=== PATIENT | female | born 1980 | race Caucasian/White ===

== ENCOUNTER → 2019-04-11 13:53 | Outpatient (BNVA) | payer MEDICAID, SELFPAY | PROVIDERS: Family Provider Nurse Practitioner Family; PCP Nurse Practitioner Family; Visit Provider Nurse Practitioner Family | DX: I10 Essential (primary) hypertension (principal); G62.9 Polyneuropathy, unspecified; F10.21 Alcohol dependence, in remission | CPT/HCPCS: 80053; 80061; 84443; 85025 ==

== ENCOUNTER 2019-05-13 12:49 | Outpatient (CLI) | payer SELFPAY ==
--- NOTE | 2019-05-13 13:03 | XR_ITS ---
WS: [id number] XR knee LT 3V* [id number] REASON FOR EXAM: see dx FINDINGS: Marked deformity of the patella from numerous spurring. Degenerate changes of the articular surfaces of the knee with large spurring off the femurs and tibia l condyles. 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 XR/XR knee LT 3V* [id number] IMPRESSION: Advanced osteoarthritic changes of the left knee.
--- NOTE | 2019-05-13 13:03 | XR_ITS ---
WS: [id number] XR knee RT 3V* [id number] REASON FOR EXAM: see dx FINDINGS: Degenerate changes across the menisci medial and lateral There is multiple fragments off the patella. The patella femoral articulation show ankylosing findings. XR/XR knee RT 3V* [id number] IMPRESSION: Ankylosing degenerate changes patellofemoral articulation Multiple fragmentations of the patella. Degenerate changes across the medial lateral articulating menisci. With ayo duggan
--- NOTE | 2019-05-13 13:03 | XR_ITS ---
WS: [id number] XR lumbar spine 2-3V* [id number] REASON FOR EXAM: see dx FINDINGS: Anterior listhesis grade L4-L5 Moderate osteoarthritic changes L4-L5-S1. with heavy eburnation. 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 The lumbosacral angle was essentially normal. XR/XR lumbar spine 2-3V* [id number] IMPRESSION: Grade 2 spondylolisthesis L4-L5 with loss of the disc space. 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
== END 2019-05-13 12:50 | disposition home or self-care (01) ==
LOC: RADWPI 12:54
PROVIDERS: Family Provider Nurse Practitioner Family; PCP Nurse Practitioner Family; Visit Provider Nurse Practitioner Family
DX: M25.561 Pain in right knee (principal); M25.562 Pain in left knee; G89.29 Other chronic pain; M54.41 Lumbago with sciatica, right side; M54.42 Lumbago with sciatica, left side; Z87.828 Personal history of other (healed) physical injury and trauma; M47.897 Other spondylosis, lumbosacral region; M43.16 Spondylolisthesis, lumbar region; M17.0 Bilateral primary osteoarthritis of knee
CPT/HCPCS: 72100; 73562

== ENCOUNTER 2020-10-18 08:23 | Inpatient (IN) | payer MEDICAID, SELFPAY ==
[2020-10-18] VITALS (10 sets, daily range): BP systolic 125–181; BP diastolic 91–112; PULSE 56–62; RESP 15–20; TEMP 36.6–37; O2SAT 96–99; BMI 38.2
--- NOTE | 2020-10-18 08:39 | ED_ITS ---
Documented by User: KENNEDY Quinonez 10/18/20 15:45 HPI - Abdominal Pain General: Chief Complaint: Abdominal Pain Stated Complaint: ABD PAIN; CHEST TIGHTNESS Time Seen by Provider: 10/18/20 08:27 Source: patient and EMS Mode of arrival: EMS Limitations: no limitations History of Present Illness: HPI narrative: Patient is a 40-year-old female who presents to ED today with a complaint of chills/hot flashes and severe abdominal pain has been present over the past 2 to 3 days and progressively worsening. Patient states she is not having any vomiting or changes to bowel habits. She is urinating normally. She states highest documented fever has been 99.8. She states this feels like the pain she had when she was drinking heavy amount of alcohol but has been sober for over a year now. MD elicited complaint: abdominal pain Pertinent past history: other (previous alcohol abuse but no longer drinks) Onset (ago): day(s) Pain Consistency: constant Location: Diffuse Severity: severe Radiation: none Migration to: no migration Relieving factors: nothing Associated Symptoms: Reports no associated symptoms, chills and fever(s); Denies change in stool character, diarrhea, dysuria, hematochezia, melena, nausea and vomiting Review of Systems Const: Reports: fever(s) and chills ENMT: Denies: throat pain or odynophagia Card: Denies: chest pain Resp: Denies: dyspnea GI: Reports: abdominal pain; Denies: nausea, vomiting, diarrhea, change in stool character, hematochezia or melena : Denies: flank pain, dysuria, urinary frequency or urinary urgency Musc: Denies: neck pain or back pain Skin/Breast: Denies: rash Neuro: Denies: headache(s), numbness in extremities, weakness in extremities or sensory changes PFSH ED PFSH: Medical History (Updated 10/18/20 @ 16:27 by Sp Cruz MD) Alcohol dependence Degeneration of meniscus of right knee Derangement of right knee Essential hypertension Osteoarthritis of left knee Peripheral neuropathy Surgical History (Updated 10/18/20 @ 16:25 by Sp Cruz MD) History of hysterectomy Family History (Updated 10/18/20 @ 16:26 by Sp Cruz MD) Mother Brain cancer Father Diabetes Hypertension Social History (Reviewed 04/21/20 @ 14:00 by REX Davis Smoking and tobacco status: current every day smoker cigarettes Packs smoked per day: 1.5 Alcohol intake: former Lives independently: Yes Marital status: Single Physical Exam Const: COMMON NORMALS: patient oriented x3, no limitations and alert GENERAL APPEARANCE: cooperative and in distress (appears uncomfortable ) NUTRITIONAL APPEARANCE: obese ORIENTATION/CONSCIOUSNESS: Yes awake, Yes oriented to person, Yes oriented to place and Yes oriented to time HENMT: COMMON NORMALS: normocephalic and atraumatic HEAD & SCALP: normocephalic and atraumatic Neck/C-Spine: COMMON NORMALS: full ROM, no lymphadenopathy and no meningeal signs Resp: COMMON NORMALS: normal respiratory effort and clear to auscultation bilaterally AUSCULTATION: clear to auscultation bilaterally Cardio: COMMON NORMALS: regular rate and regular rhythm RATE: regular rate RHYTHM: regular rhythm GI: COMMON NORMALS: Normal to inspection, nondistended, normoactive bowel shantell nds present and no masses INSPECTION: Yes normal to inspection PALPATION: Yes Tenderness to palpation present (GI) (diffusely but mainly to epigastric/LUQ/LLQ) and Yes Guarding due to palpation present (GI) : COMMON NORMALS: Yes no CVA tenderness BLADDER/KIDNEY EXAM: Yes no CVA tenderness Back/Pelvis: COMMON NORMALS: no CVA tenderness Extremity: COMMON NORMALS: normal to inspection Neuro: COMMON NORMALS: patient oriented x3 SENSORIUM/ORIENTATION: Yes alert, Yes oriented to person, Yes oriented to place and Yes oriented to time MENINGEAL SIGNS: Yes no meningeal signs Skin: COMMON NORMALS: no rashes or lesions noted NARRATIVE SKIN EXAM: sweating but she is also covered in 5 blankets GENERAL SKIN EXAM: no rashes or lesions noted Course ED course: CBD is dilated to 10mm. She has normal LFTs but her lipase is 230. Pancreas looks normal on CT imaging. Because she is complaining of severe abdominal pain MRCP is necessary to evaluate for choledocholithiasis. Consultations: Consultation #1: Dr. Cruz-graciously accepts admission Vital Signs: Vital signs: Vital Signs Temperature 97.6 F 10/20/20 11:16 Pulse Rate 73 10/20/20 11:16 Respiratory Rate 18 10/20/20 11:16 Blood Pressure 139/82 10/20/20 11:16 Pulse Oximetry 95 10/20/20 11:16 MDM - Abdominal Pain MDM Narrative: Medical decision making narrative: Patient CT showing CBD dilatation. MRCP was obtained to rule out choledocholithiasis. This is indeed negative. Patient's LFTs are normal. She does have an elevated lipase at 230. Patient initially was not complaining of nausea and vomiting but did later throughout her visit. She was given antiemetics but continued to vomit. Pain has been uncontrollable despite repeat doses of pain medications and even attempted GI cocktail (which patient vomited). Patient states she does not feel comfortable going home. I think it is reasonable to admit her for N/V and intractable abdominal pain. Alcohol and UDS have been ordered. Spoke to hospitalist who is agreeable to admit. Lab Data: Labs: Lab Results 10/18/20 10/18/20 10/18/20 Range/Units 09:00 09:00 09:00 WBC 11.5 H (4.0-10.0) 10^3/ uL RBC 5.46 H (4.1-5.3) 10^6/u L Hgb 16.6 H (11.5-15.3) g/dL Hct 49.7 H (37.0-47.0) % MCV 91.0 (81-99) fl MCH 30.4 (28.0-34.0) pg MCHC 33.4 (30.0-36.0) g/dL RDW 13.4 (12.1-15.1) % Plt Count 274 (130-400) 10^3/c mm MPV 11.0 H (7.4-10.4) fL Neut % (Auto) 75.3 % Lymph % (Auto) 18.6 % [place] % (Auto) 4.4 % Eos % (Auto) 1.1 % Baso % (Auto) 0.3 % Neut # (Auto) 8.64 H (1.8-7.7) 10^3/u L Lymph # (Auto) 2.1 (0.8-4.8) 10^3/u L [place] # (Auto) 0.5 (0.2-0.9) 10^3/u L Eos # (Auto) 0.1 (0.0-0.8) 10^3/u L Baso # (Auto) 0.0 (0.0-0.1) 10^3/u L Nucleated RBC % (a uto) 0 % Nucleated RBCs # 0.0 /100WBC ESR (0-15) mm/hr Sodium 136 (136-145) mmol/L Potassium 4.0 (3.5-5.1) mmol/L Chloride 99 (98-107) mmol/L Carbon Dioxide 24 (22-29) mmol/L Anion Gap 17.0 (5-19) BUN 6 (6-20) mg/dL Creatinine 0.3 L (0.5-0.9) mg/dL GFR Calculation 244.0 H (90-130) mL/min Glucose 139 H (65-115) mg/dL Calculated Osmolal ity 282 L (285-295) mOsm/k g Calcium 9.8 (8.5-10.5) mg/dL Total Bilirubin 1.0 (0.15-1.2) mg/dL AST 18 (0-32) U/L ALT 14 (0-33) U/L Alkaline Phosphata se 104 (35-105) IU/L Troponin T Gen 5 n g/L (0-10) ng/L C-Reactive Protein (0.0-4.9) mg/L Total Protein 8.1 (6.6-8.7) g/dL Albumin 3.9 (3.5-5.2) g/dL Globulin 4.2 (1.3-4.6) g/dL Lipase 230 H (13-60) U/L Procalcitonin (0-0.5) ng/mL HCG, Qual Negative (Negative) Urine Color (Yellow) Urine Appearance (CLEAR) Urine pH (5-7) Ur Specific Gravit y (1.005-1.030) Urine Protein (Negative) Urine Glucose (UA) (Normal) Urine Ketones (Negative) Urine Blood (Negative) Urine Nitrate (Negative) Urine Bilirubin (Negative) Prot Sulfosalicyli c Acd (Negative) Urine Urobilinogen (Negative) mg/dL Ur Leukocyte Swapna ase (Negative) Urine Opiates Scre en (Negative) ng/mL Ur Barbiturates Sc reen (Negative) ng/mL Ur Phencyclidine S crn (Negative) ng/mL Ur Amphetamines Sc reen (Negative) ng/mL U Benzodiazepines Scrn (Negative) ng/mL Urine Cocaine Scre en (Negative) ng/mL U Marijuana (THC) Screen (Negative) ng/mL Ethyl Alcohol (0-10) mg/dL 10/18/20 10/18/20 10/18/20 Range/Units 09:00 09:00 09:00 WBC (4.0-10.0) 10^3/ uL RBC (4.1-5.3) 10^6/u L Hgb (11.5-15.3) g/dL Hct (37.0-47.0) % MCV (81-99) fl MCH (28.0-34.0) pg MCHC (30.0-36.0) g/dL RDW (12.1-15.1) % Plt Count (130-400) 10^3/c mm MPV (7.4-10.4) fL Neut % (Auto) % Lymph % (Auto) % [place] % (Auto) % Eos % (Auto) % Baso % (Auto) % Neut # (Auto) (1.8-7.7) 10^3/u L Lymph # (Auto) (0.8-4.8) 10^3/u L [place] # (Auto) (0.2-0.9) 10^3/u L Eos # (Auto) (0.0-0.8) 10^3/u L Baso # (Auto) (0.0-0.1) 10^3/u L Nucleated RBC % (a uto) % Nucleated RBCs # /100WBC ESR 22 H (0-15) mm/hr Sodium (136-145) mmol/L Potassium (3.5-5.1) mmol/L Chloride (98-107) mmol/L Carbon Dioxide (22-29) mmol/L Anion Gap (5-19) BUN (6-20) mg/dL Creatinine (0.5-0.9) mg/dL GFR Calculation (90-130) mL/min Glucose (65-115) mg/dL Calculated Osmolal ity (285-295) mOsm/k g Calcium (8.5-10.5) mg/dL Total Bilirubin (0.15-1.2) mg/dL AST (0-32) U/L ALT (0-33) U/L Alkaline Phosphata se (35-105) IU/L Troponin T Gen 5 n g/L (0-10) ng/L C-Reactive Protein 7.2 H (0.0-4.9) mg/L Total Protein (6.6-8.7) g/dL Albumin (3.5-5.2) g/dL Globulin (1.3-4.6) g/dL Lipase (13-60) U/L Procalcitonin 0.05 (0-0.5) ng/mL HCG, Qual (Negative) Urine Color (Yellow) Urine Appearance (CLEAR) Urine pH (5-7) Ur Specific Gravit y (1.005-1.030) Urine Protein (Negative) Urine Glucose (UA) (Normal) Urine Ketones (Negative) Urine Blood (Negative) Urine Nitrate (Negative) Urine Bilirubin (Negative) Prot Sulfosalicyli c Acd (Negative) Urine Urobilinogen (Negative) mg/dL Ur Leukocyte Swapna ase (Negative) Urine Opiates Scre en (Negative) ng/mL Ur Barbiturates Sc reen (Negative) ng/mL Ur Phencyclidine S crn (Negative) ng/mL Ur Amphetamines Sc reen (Negative) ng/mL U Benzodiazepines Scrn (Negative) ng/mL Urine Cocaine Scre en (Negative) ng/mL U Marijuana (THC) Screen (Negative) ng/mL Ethyl Alcohol < 10 (0-10) mg/dL 10/18/20 10/18/20 10/18/20 Range/Units 09:00 10:25 10:25 WBC (4.0-10.0) 10^3/ uL RBC (4.1-5.3) 10^6/u L Hgb (11.5-15.3) g/dL Hct (37.0-47.0) % MCV (81-99) fl MCH (28.0-34.0) pg MCHC (30.0-36.0) g/dL RDW (12.1-15.1) % Plt Count (130-400) 10^3/c mm MPV (7.4-10.4) fL Neut % (Auto) % Lymph % (Auto) % [place] % (Auto) % Eos % (Auto) % Baso % (Auto) % Neut # (Auto) (1.8-7.7) 10^3/u L Lymph # (Auto) (0.8-4.8) 10^3/u L [place] # (Auto) (0.2-0.9) 10^3/u L Eos # (Auto) (0.0-0.8) 10^3/u L Baso # (Auto) (0.0-0.1) 10^3/u L Nucleated RBC % (a uto) % Nucleated RBCs # /100WBC ESR (0-15) mm/hr Sodium (136-145) mmol/L Potassium (3.5-5.1) mmol/L Chloride (98-107) mmol/L Carbon Dioxide (22-29) mmol/L Anion Gap (5-19) BUN (6-20) mg/dL Creatinine (0.5-0.9) mg/dL GFR Calculation (90-130) mL/min Glucose (65-115) mg/dL Calculated Osmolal ity (285-295) mOsm/k g Calcium (8.5-10.5) mg/dL Total Bilirubin (0.15-1.2) mg/dL AST (0-32) U/L ALT (0-33) U/L Alkaline Phosphata se (35-105) IU/L Troponin T Gen 5 n g/L 6 (0-10) ng/L C-Reactive Protein (0.0-4.9) mg/L Total Protein (6.6-8.7) g/dL Albumin (3.5-5.2) g/dL Globulin (1.3-4.6) g/dL Lipase (13-60) U/L Procalcitonin (0-0.5) ng/mL HCG, Qual (Negative) Urine Color Straw (Yellow) Urine Appearance Clear (CLEAR) Urine pH 9 H (5-7) Ur Specific Gravit y 1.010 (1.005-1.030) Urine Protein Neg (Negative) Urine Glucose (UA) Norm (Normal) Urine Ketones 1+ H (Negative) Urine Blood Neg (Negative) Urine Nitrate Negative (Negative) Urine Bilirubin Neg (Negative) Prot Sulfosalicyli c Acd Negative (Negative) Urine Urobilinogen Norm (Negative) mg/dL Ur Leukocyte Swapna ase Negative (Negative) Urine Opiates Scre en Positive H (Negative) ng/mL Ur Barbiturates Sc reen Negative (Negative) ng/mL Ur Phencyclidine S crn Negative (Negative) ng/mL Ur Amphetamines Sc reen Positive H (Negative) ng/mL U Benzodiazepines Scrn Negative (Negative) ng/mL Urine Cocaine Scre en Negative (Negative) ng/mL U Marijuana (THC) Screen Positive H (Negative) ng/mL Ethyl Alcohol (0-10) mg/dL Imaging Data ^: CT Abd/Pel: Radiologist's impression: [employer] [address] [id number] Scan ReportSigned Patient: Ana Cristina Hernandez #: [id number]: 1980Acct#:[id number] ge/Sex: 40 / FADM Date: 10/18/20Loc: ERRoom/Bed:Attending Dr: Ordering Provider/Ordering MD: Casandra Melendez Date of Service: 10/18/20 Procedure(s): CT abdomen pelvis w con* [id number] Accession Number(s): [id number] Report Number: [id number] PROCEDURE INFORMATION: Exam: CT Abdomen And Pelvis With Contrast Exam date and time: 10/18/2020 8:39 AM Age: 40 years old Clinical indication: Abdominal pain; Additional info: Diffuse abdominal pain TECHNIQUE: Imaging protocol: Computed tomography of the abdomen and pelvis with contrast. Radiation optimization: All CT scans at this facility use at least one of these dose optimization techniques: automated exposure control; mA and/or kV adjustment per patient size (includes targeted exams where dose is matched to clinical indication); or iterative reconstruction. Contrast material: OMNI 300; Contrast volume: 95 ml; Contrast route: INTRAVENOUS (IV); COMPARISON: CT abdomen pelvis w con* [id number] 09/29/2017 1:43 PM RADIATION DOSE METRICS: Total DLP (mGy-cm): 1733.63 FINDINGS: Mediastinal space: A small hiatal hernia is present. Liver: Normal. No mass. Gallbladder and bile ducts: Dilated CBD measuring up to 10 mm in diameter the gallbladder is mildly distended. No associated inflammatory changes seen. Pancreas: Normal. No ductal dilation. Spleen: Normal. No splenomegaly. Adrenal glands: Normal. No mass. Kidneys and ureters: Normal. No hydronephrosis. Stomach and bowel: Unremarkable. No obstruction. No mucosal thickening. Appendix: No evidence of appendicitis. Intraperitoneal space: Unremarkable. No free air. No significant fluid collection. Vasculature: Mild diffuse atherosclerotic disease is present. Lymph nodes: Unremarkable. No enlarged lymph nodes. Urinary bladder: Unremarkable as visualized. Reproductive: Unremarkable as visualized. Bones/joints: Degenerative changes of the spine and right hip joint noted. Soft tissues: Unremarkable. CT/CT abdomen pelvis w con* [id number] IMPRESSION: 1. No clear evidence of acute intra-abdominal or intrapelvic pathology. 2. Dilated CBD. Further evaluation for choledocholithiasis with abdomen ultrasound and/or MRI/MRCP should be considered in the adequate clinical setting. Radiation Dose CTDIVOL = (mGy): DLP = 1733.63 (mGy-cm) Dictated By:Ventura Fleming By:Ventura Fleming Date/Time:10/18/2044DD/ 2 MRCP: Radiologist's impression: [address] [id number] Resonance ReportSigned Patient: Ana Cristina Hernandez #: [id number]: 07/20Acct#:[id number]/Sex: 40 / FADM Date: 10/18/20Loc: ERRoom/Bed:Attending Dr: Ordering Provider/Ordering MD: Casandra Melendez Date of Service: 10/18/20 Procedure(s): MR MRCP 97029 Accession Number(s): [id number] Report Number: [id number] PROCEDURE INFORMATION: Exam: MR Abdomen Without Contrast, Biliary System Exam date and time: 10/18/2020 10:14 AM Age: 40 years old Clinical indication: Abdominal pain; Additional info: Cbd dilation, abdominal pain, elevate lipase TECHNIQUE: Imaging protocol: MR of the abdomen without contrast. Exam focused on the biliary system and pancreatic ducts. Routine 3D-MRCP images were acquired and processed without radiologist supervision. COMPARISON: CT abdomen pelvis w con* [id number] 10/18/2020 9:16 AM FINDINGS: Liver: No mass. Gallbladder and bile ducts: Unremarkable. No filling defects. No intrahepatic or extrahepatic biliary ductal dilatation. Common bile duct approximately 7 mm. No choledocholithiasis or stricture. Pancreas: Unremarkable. No ductal dilation. Intraperitoneal space: No fluid collection. MR/MR MRCP [id number] IMPRESSION: Unremarkable MRCP. No biliary obstruction or choledocholithiasis. Dictated By:Rex Carver MDSigned By:Rex Carver MDSigned Date/Time:10/18/20 1251DD/ 1249 Discharge Plan Discharge Patient Disposition: Admitted As Inpatient Admit Provider: Sp Cruz Clinical Impression: Elevated lipase, Intractable abdominal pain Nausea and vomiting Qualifiers: Vomiting type: unspecified Vomiting Intractability: non-intractable Qualified Code(s): R11.2 - Nausea with vomiting, unspecified Condition: Stable Coding Level of Care Code ED [employer] P[employer] Sealer for Chg Fwd Exam Comprehensive Documented by User: Ernie Dyer MD 10/20/20 11:24 HPI - Abdominal Pain General: Chief Complaint: Abdominal Pain Stated Complaint: ABD PAIN; CHEST TIGHTNESS Time Seen by Provider: 10/18/20 08:27 [facility] ED PFSH: Medical History (Updated 10/18/20 @ 16:27 by Sp Cruz MD) Alcohol dependence Degeneration of meniscus of right knee Derangement of right knee Essential hypertension Osteoarthritis of left knee Peripheral neuropathy Surgical History (Updated 10/18/20 @ 16:25 by Sp Cruz MD) History of hysterectomy Family History (Updated 10/18/20 @ 16:26 by Sp Cruz MD) Mother Brain cancer Father Diabetes Hypertension Social History Smoking and tobacco status: current every day smoker cigarettes Packs smoked per day: 1.5 Alcohol intake: former Lives independently: Yes Marital status: Single Course Vital Signs: Vital signs: Vital Signs Temperature 97.6 F 10/20/20 11:16 Pulse Rate 73 10/20/20 11:16 Respiratory Rate 18 10/20/20 11:16 Blood Pressure 139/82 10/20/20 11:16 Pulse Oximetry 95 10/20/20 11:16 MDM - Abdominal Pain MDM Narrative: Medical decision making narrative: I discussed the case with KENNEDY Quinonez. I have reviewed the documentation. Ernie Dyer MD Emergency Medicine Lab Data: Labs: Lab Results 10/18/20 10/18/20 10/18/20 Range/Units 09:00 09:00 09:00 WBC 11.5 H (4.0-10.0) 10^3/ uL RBC 5.46 H (4.1-5.3) 10^6/u L Hgb 16.6 H (11.5-15.3) g/dL Hct 49.7 H (37.0-47.0) % MCV 91.0 (81-99) fl MCH 30.4 (28.0-34.0) pg MCHC 33.4 (30.0-36.0) g/dL RDW 13.4 (12.1-15.1) % Plt Count 274 (130-400) 10^3/c mm MPV 11.0 H (7.4-10.4) fL Neut % (Auto) 75.3 % Lymph % (Auto) 18.6 % [place] % (Auto) 4.4 % Eos % (Auto) 1.1 % Baso % (Auto) 0.3 % Neut # (Auto) 8.64 H (1.8-7.7) 10^3/u L Lymph # (Auto) 2.1 (0.8-4.8) 10^3/u L [place] # (Auto) 0.5 (0.2-0.9) 10^3/u L Eos # (Auto) 0.1 (0.0-0.8) 10^3/u L Baso # (Auto) 0.0 (0.0-0.1) 10^3/u L Nucleated RBC % (a uto) 0 % Nucleated RBCs # 0.0 /100WBC ESR (0-15) mm/hr Sodium 136 (136-145) mmol/L Potassium 4.0 (3.5-5.1) mmol/L Chloride 99 (98-107) mmol/L Carbon Dioxide 24 (22-29) mmol/L Anion Gap 17.0 (5-19) BUN 6 (6-20) mg/dL Creatinine 0.3 L (0.5-0.9) mg/dL GFR Calculation 244.0 H (90-130) mL/min Glucose 139 H (65-115) mg/dL Calculated Osmolal ity 282 L (285-295) mOsm/k g Calcium 9.8 (8.5-10.5) mg/dL Total Bilirubin 1.0 (0.15-1.2) mg/dL AST 18 (0-32) U/L ALT 14 (0-33) U/L Alkaline Phosphata se 104 (35-105) IU/L Troponin T Gen 5 n g/L (0-10) ng/L C-Reactive Protein (0.0-4.9) mg/L Total Protein 8.1 (6.6-8.7) g/dL Albumin 3.9 (3.5-5.2) g/dL Globulin 4.2 (1.3-4.6) g/dL Lipase 230 H (13-60) U/L Procalcitonin (0-0.5) ng/mL HCG, Qual Negative (Negative) Urine Color (Yellow) Urine Appearance (CLEAR) Urine pH (5-7) Ur Specific Gravit y (1.005-1.030) Urine Protein (Negative) Urine Glucose (UA) (Normal) Urine Ketones (Negative) Urine Blood (Negative) Urine Nitrate (Negative) Urine Bilirubin (Negative) Prot Sulfosalicyli c Acd (Negative) Urine Urobilinogen (Negative) mg/dL Ur Leukocyte Swapna ase (Negative) Urine Opiates Scre en (Negative) ng/mL Ur Barbiturates Sc reen (Negative) ng/mL Ur Phencyclidine S crn (Negative) ng/mL Ur Amphetamines Sc reen (Negative) ng/mL U Benzodiazepines Scrn (Negative) ng/mL Urine Cocaine Scre en (Negative) ng/mL U Marijuana (THC) Screen (Negative) ng/mL Ethyl Alcohol (0-10) mg/dL 10/18/20 10/18/20 10/18/20 Range/Units 09:00 09:00 09:00 WBC (4.0-10.0) 10^3/ uL RBC (4.1-5.3) 10^6/u L Hgb (11.5-15.3) g/dL Hct (37.0-47.0) % MCV (81-99) fl MCH (28.0-34.0) pg MCHC (30.0-36.0) g/dL RDW (12.1-15.1) % Plt Count (130-400) 10^3/c mm MPV (7.4-10.4) fL Neut % (Auto) % Lymph % (Auto) % [place] % (Auto) % Eos % (Auto) % Baso % (Auto) % Neut # (Auto) (1.8-7.7) 10^3/u L Lymph # (Auto) (0.8-4.8) 10^3/u L [place] # (Auto) (0.2-0.9) 10^3/u L Eos # (Auto) (0.0-0.8) 10^3/u L Baso # (Auto) (0.0-0.1) 10^3/u L Nucleated RBC % (a uto) % Nucleated RBCs # /100WBC ESR 22 H (0-15) mm/hr Sodium (136-145) mmol/L Potassium (3.5-5.1) mmol/L Chloride (98-107) mmol/L Carbon Dioxide (22-29) mmol/L Anion Gap (5-19) BUN (6-20) mg/dL Creatinine (0.5-0.9) mg/dL GFR Calculation (90-130) mL/min Glucose (65-115) mg/dL Calculated Osmolal ity (285-295) mOsm/k g Calcium (8.5-10.5) mg/dL Total Bilirubin (0.15-1.2) mg/dL AST (0-32) U/L ALT (0-33) U/L Alkaline Phosphata se (35-105) IU/L Troponin T Gen 5 n g/L (0-10) ng/L C-Reactive Protein 7.2 H (0.0-4.9) mg/L Total Protein (6.6-8.7) g/dL Albumin (3.5-5.2) g/dL Globulin (1.3-4.6) g/dL Lipase (13-60) U/L Procalcitonin 0.05 (0-0.5) ng/mL HCG, Qual (Negative) Urine Color (Yellow) Urine Appearance (CLEAR) Urine pH (5-7) Ur Specific Gravit y (1.005-1.030) Urine Protein (Negative) Urine Glucose (UA) (Normal) Urine Ketones (Negative) Urine Blood (Negative) Urine Nitrate (Negative) Urine Bilirubin (Negative) Prot Sulfosalicyli c Acd (Negative) Urine Urobilinogen (Negative) mg/dL Ur Leukocyte Swapna ase (Negative) Urine Opiates Scre en (Negative) ng/mL Ur Barbiturates Sc reen (Negative) ng/mL Ur Phencyclidine S crn (Negative) ng/mL Ur Amphetamines Sc reen (Negative) ng/mL U Benzodiazepines Scrn (Negative) ng/mL Urine Cocaine Scre en (Negative) ng/mL U Marijuana (THC) Screen (Negative) ng/mL Ethyl Alcohol < 10 (0-10) mg/dL 10/18/20 10/18/20 10/18/20 Range/Units 09:00 10:25 10:25 WBC (4.0-10.0) 10^3/ uL RBC (4.1-5.3) 10^6/u L Hgb (11.5-15.3) g/dL Hct (37.0-47.0) % MCV (81-99) fl MCH (28.0-34.0) pg MCHC (30.0-36.0) g/dL RDW (12.1-15.1) % Plt Count (130-400) 10^3/c mm MPV (7.4-10.4) fL Neut % (Auto) % Lymph % (Auto) % [place] % (Auto) % Eos % (Auto) % Baso % (Auto) % Neut # (Auto) (1.8-7.7) 10^3/u L Lymph # (Auto) (0.8-4.8) 10^3/u L [place] # (Auto) (0.2-0.9) 10^3/u L Eos # (Auto) (0.0-0.8) 10^3/u L Baso # (Auto) (0.0-0.1) 10^3/u L Nucleated RBC % (a uto) % Nucleated RBCs # /100WBC ESR (0-15) mm/hr Sodium (136-145) mmol/L Potassium (3.5-5.1) mmol/L Chloride (98-107) mmol/L Carbon Dioxide (22-29) mmol/L Anion Gap (5-19) BUN (6-20) mg/dL Creatinine (0.5-0.9) mg/dL GFR Calculation (90-130) mL/min Glucose (65-115) mg/dL Calculated Osmolal ity (285-295) mOsm/k g Calcium (8.5-10.5) mg/dL Total Bilirubin (0.15-1.2) mg/dL AST (0-32) U/L ALT (0-33) U/L Alkaline Phosphata se (35-105) IU/L Troponin T Gen 5 n g/L 6 (0-10) ng/L C-Reactive Protein (0.0-4.9) mg/L Total Protein (6.6-8.7) g/dL Albumin (3.5-5.2) g/dL Globulin (1.3-4.6) g/dL Lipase (13-60) U/L Procalcitonin (0-0.5) ng/mL HCG, Qual (Negative) Urine Color Straw (Yellow) Urine Appearance Clear (CLEAR) Urine pH 9 H (5-7) Ur Specific Gravit y 1.010 (1.005-1.030) Urine Protein Neg (Negative) Urine Glucose (UA) Norm (Normal) Urine Ketones 1+ H (Negative) Urine Blood Neg (Negative) Urine Nitrate Negative (Negative) Urine Bilirubin Neg (Negative) Prot Sulfosalicyli c Acd Negative (Negative) Urine Urobilinogen Norm (Negative) mg/dL Ur Leukocyte Swapna ase Negative (Negative) Urine Opiates Scre en Positive H (Negative) ng/mL Ur Barbiturates Sc reen Negative (Negative) ng/mL Ur Phencyclidine S crn Negative (Negative) ng/mL Ur Amphetamines Sc reen Positive H (Negative) ng/mL U Benzodiazepines Scrn Negative (Negative) ng/mL Urine Cocaine Scre en Negative (Negative) ng/mL U Marijuana (THC) Screen Positive H (Negative) ng/mL Ethyl Alcohol (0-10) mg/dL Discharge Plan Discharge Patient Disposition: Admitted As Inpatient Admit Provider: Sp Cruz Clinical Impression: Elevated lipase, Intractable abdominal pain Nausea and vomiting Qualifiers: Vomiting type: unspecified Vomiting Intractability: non-intractable Qualified Code(s): R11.2 - Nausea with vomiting, unspecified Condition: Stable Coding Level of Care Code ED [employer] for Chg Fwd Exam Comprehensive
[2020-10-18] MEDS: sodium chloride 0.9% 1,000 ML 999 ML IV (09:18)
[2020-10-18] MEDS: iohexol 300 mg/mL 100 mL Btl IV (09:21)
[2020-10-18 09:44] LABS: Basophils % 0.3 %; Eosinophils # 0.1 10^3/uL (0.0-0.8); Eosinophils % 1.1 %; Hematocrit 49.7 % (37.0-47.0); Hemoglobin 16.6 g/dL (11.5-15.3); Lymphocytes # 2.1 10^3/uL (0.8-4.8); Lymphocytes % 18.6 %; Mean Corpuscular HGB Conc 33.4 g/dL (30.0-36.0); Mean Corpuscular Hemoglobin 30.4 pg (28.0-34.0); Monocytes # 0.5 10^3/uL (0.2-0.9); Monocytes % 4.4 %; Neutrophils # 8.64 10^3/uL (1.8-7.7); Neutrophils % 75.3 %; Nucleated Red Blood Cells % 0 %; Platelet Count 274 10^3/cmm (130-400); Red Blood Count 5.46 10^6/uL (4.1-5.3); Red Cell Distribution Width 13.4 % (12.1-15.1); White Blood Count 11.5 10^3/uL (4.0-10.0)
[2020-10-18 09:45] LABS: HCG, Serum Qual Negative (Negative)
[2020-10-18 09:54] LABS: Alanine Aminotransferase 14 U/L (0-33); Albumin Level 3.9 g/dL (3.5-5.2); Alkaline Phosphatase 104 IU/L (35-105); Aspartate Amino Transferase 18 U/L (0-32); Blood Urea Nitrogen 6 mg/dL (6-20); Calcium 9.8 mg/dL (8.5-10.5); Carbon Dioxide 24 mmol/L (22-29); Chloride 99 mmol/L (98-107); Globulin 4.2 g/dL (1.3-4.6); Glucose 139 mg/dL (65-115); Lipase 230 U/L (13-60); Osmolality Calculated 282 mOsm/kg (285-295); Sodium 136 mmol/L (136-145); Total Protein 8.1 g/dL (6.6-8.7)
--- NOTE | 2020-10-18 10:14 | MRR_ITS ---
PROCEDURE INFORMATION: Exam: MR Abdomen Without Contrast, Biliary System Exam date and time: 10/18/2020 10:14 AM Age: 40 years old Clinical indication: Abdominal pain; Additional info: Cbd dilation, abdominal pain, elevate lipase TECHNIQUE: Imaging protocol: MR of the abdomen without contrast. Exam focused on the biliary system and pancreatic ducts. Routine 3D-MRCP images were acquired and processed without radiologist supervision. COMPARISON: CT abdomen pelvis w con* [id number] 10/18/2020 9:16 AM FINDINGS: Liver: No mass. Gallbladder and bile ducts: Unremarkable. No filling defects. No intrahepatic or extrahepatic biliary ductal dilatation. Common bile duct approximately 7 mm. No choledocholithiasis or stricture. Pancreas: Unremarkable. No ductal dilation. Intraperitoneal space: No fluid collection. MR/MR MRCP [id number] IMPRESSION: Unremarkable MRCP. No biliary obstruction or choledocholithiasis.
[2020-10-18] MEDS: acetaminophen 1,000 MG/100 ML PIGGYBACK 400 MG IV (10:33)
[2020-10-18 10:46] LABS: Add Urine Microscopic? NO; Charge for UA Resulting for Rev
[2020-10-18 10:56] LABS: Urine Appearance Clear (CLEAR); Urine Color Straw (Yellow)
[2020-10-18 10:57] LABS: Bilirubin Urine Neg (Negative); Blood Urine Neg (Negative); Glucose Urine UA Norm (Normal); Ketones Urine 1+ (Negative); Leukocyte Esterase Urine Negative (Negative); Nitrate Urine Negative (Negative); Protein Urine Neg (Negative); Urobilinogen Urine Norm (Negative); pH Urine 9 (5-7)
[2020-10-18 11:43] LABS: Sulfosalicylic Acid Urine Negative (Negative)
[2020-10-18] MEDS: morphine 4 mg/mL SDV 1 mL IVP (11:43)
[2020-10-18] MEDS: ketorolac 30 mg/mL INJ IVP (12:22)
[2020-10-18] MEDS: lidocaine 2% viscous 15 ML, aluminum-mag hydrox-simethicon 30 ML, sucralfate oral liq 1 GM PO (13:27)
[2020-10-18] MEDS: ondansetron 2 mg/ML SDV 2 mL 4 MG IVP ×2 (13:36→19:06)
[2020-10-18] MEDS: fentaNYL 50 mcg/mL INJ 2mL IVP (15:19)
[2020-10-18 15:37] LABS: Amphetamines Screen Urine Positive (Negative); Barbiturates Screen Urine Negative (Negative); Benzodiazepines Screen Urine Negative (Negative); Cocaine Screen Urine Negative (Negative); Opiate Screen Urine Positive (Negative); PCP Screen Urine Negative (Negative); THC Screen Urine Positive (Negative)
[2020-10-18 15:54] LABS: Alcohol Level < 10 mg/dL (0-10)
--- NOTE | 2020-10-18 16:19 | P.HP_ITS ---
Providers/Chief Complaint Primary Care Provider: ISAURA Davis Chief Complaint: ABD PAIN; CHEST TIGHTNESS History of Present Illness Filomena Hernandez is a 40 year old female with a past medical history of diverticulitis, peripheral neuropathy, history of opioid addiction recently going to a Suboxone clinic, patient tells me that she lost her Medicare, so she lost a lot of her medications, she tells me that she has episodes of diver ticulitis and Protonix typically help her, she tells me that last night, she started to develop left lower quadrant pain, is also left-sided pain under her breast, she felt nauseous, she had episodes of vomiting, no diarrhea, her last bowel movement was yesterday, she does tell me that she has intermittent bloody stools but she thinks it is her hemorrhoids, no history of gastric ulcers, she denies being , she had a hysterectomy, no dysuria, no hematuria, no flank pain, no fevers, no known exposure to COVID-19, she does tell me that she spoke marijuana a few days ago, she thinks it might have been laced with methamphetamines, that is why her urine was positive for amphetamines, she has no good explanation of why urine was positive for opiates, denies any recent use, for her chest discomfort, under the left breast, does radiate to the left lower quadrant Review of Systems Const: Denies: fever(s) Eyes: Denies: change in vision or blurry vision ENMT: Denies: nasal congestion Resp: Denies: dyspnea, productive cough, non-productive cough or wheezing GI: Reports: abdominal pain, nausea, vomiting and hematochezia; Denies: hematemesis, diarrhea, constipation or melena : Denies: flank pain, dysuria or urinary frequency Musc: Denies: neck pain or back pain Skin/Breast: Denies: rash Neuro: Denies: headache(s), dizziness or vertigo Endo: Denies: polyuria or polydipsia Medications/Allergies Home Medications Medication Instructions Recorded Confirmed Last Taken Type gabapentin 400 mg capsule 400 mg PO .five times daily 30 04/21/20 10/18/20 10/18/20 Rx Days #150 cap metoprolol tartrate 50 mg tablet 50 mg PO BID 30 Days #60 tab 04/21/20 10/18/20 10/18/20 Rx Allergies Allergy/AdvReac Type Severity Reaction Status Date / Time No Known Allergies Allergy Verified 04/21/20 13:38 PFSH Acute PFSH: Medical History (Updated 10/18/20 @ 16:27 by Sp Cruz MD) Alcohol dependence Degeneration of meniscus of right knee Derangement of right knee Essential hypertension Osteoarthritis of left knee Peripheral neuropathy Surgical History (Updated 10/18/20 @ 16:25 by Sp Cruz MD) History of hysterectomy Family History (Updated 10/18/20 @ 16:26 by Sp Cruz MD) Mother Brain cancer Father Diabetes Hypertension Social History Smoking and tobacco status: current every day smoker cigarettes Packs smoked per day: 1.5 Alcohol intake: former Lives independently: Yes Marital status: Single Vitals/I&O/Wt Last Vital Signs Temp 97.8 F 10/18/20 08:40 Pulse 56 L 10/18/20 15:00 Resp 16 10/18/20 15:00 BP 125/97 10/18/20 15:00 Pulse Ox 99 10/18/20 15:00 10/18/20 10/18/20 10/18/20 06:59 14:59 22:59 Intake Total 1100 / 1100 Balance 1100 / 1100 Weight last 48 hrs Weight 104.326 kg Physical Exam Const: COMMON NORMALS: no acute distress and patient oriented x3 GENERAL APPEARANCE: comfortable HENMT: COMMON NORMALS: normocephalic HEAD & SCALP: normocephalic Eye: COMMON NORMALS: Equal, round and reactive pupils present and EOMs intact bilaterally GENERAL EYE: appearance normal, both eyes and all related structures PUPIL: Yes Equal, round and reactive pupils present Neck/C-Spine: COMMON NORMALS: full ROM and no lymphadenopathy THYROID: Thyroid normal Lymph: LYMPHATIC: no lymphadenopathy noted Resp: COMMON NORMALS: normal respiratory effort, No retractions, No use of accessory muscles and clear to auscultation bilaterally AUSCULTATION: clear to auscultation bilaterally Cardio: COMMON NORMALS: regular rate, regular rhythm, S1 normal heart sound present and S2 normal heart sound present RATE: regular rate RHYTHM: regular rhythm HEART SOUNDS: S1 normal heart sound present and S2 normal heart sound present GI: COMMON NORMALS: Normal to inspection, nondistended, normoactive bowel sounds present and Soft to palpation PALPATION: Yes Tenderness to palpation present (GI) Details: LLQ, RLQ, LUQ and RUQ, No Guarding due to palpation present (GI), No Rigid due to palpation and Yes No hepatosplenomegaly present Extremity: COMMON NORMALS: normal to inspection, full ROM and no pedal edema Neuro: COMMON NORMALS: patient oriented x3, CN's II-XII intact bilaterally, moves all extremities and no focal motor deficits Psych: COMMON NORMALS: mental status grossly normal, Normal thought process present and cooperative THOUGHT PROCESS: Normal thought process present Data : 10/18/20 09:00 10/18/20 09:00 A&P Assessment and plan (1) Left lower quadrant abdominal pain: - Pain is primarily in the left lower quadrant, but does have generalized tenderness -WBC 11.5 -UA unremarkable for UTI, no radiographic evidence of pyelonephritis -CT of the abdomen pelvis has no acute findings, did show dilated CBD, MRCP no acute findings -MRCP has no acute findings -No significant transaminitis, no bili elevation -Lipase 230 -Does have a history of diverticulitis in the past -Urine toxicology positive for opiates, amphetamines, marijuana Plan: -Will admit for diverticulitis -Pain control with morphine 2 mg every 4 hours, will limit pain medication given history previous drug use, positive urine toxicology screen -Zofran for nausea -Continue Cipro and Flagyl -Follow blood cultures, serial abdominal exams -Protonix for GI prophylaxis -Lovenox for DVT prophylaxis -Full code Status: Acute Additional A&P Information Does report that recently she was being seen at Suboxone clinic, however looking at her external med list, I cannot confirm that she has been on Suboxone Attestations Medical Necessity Statement*: Patient requires hospitalization, outpatient with observation, left lower quadrant abdominal pain, likely acute diverticulitis Coding Level of Care Code Acute Visual Merchandise Manager for Stacy Fry Diagnoses Left lower quadrant abdominal pain R10.32
--- NOTE | 2020-10-18 16:19 | ECG_ITS ---
[facility] Test Date: 2020-10-18 Pat Name: Filomena Hernandez Department: Room: 250 Gender: Female Pencil Inspector: : 1980 Requested By: Sp Cruz Order Number: [id number] Frances MD: Tammy Lowe M.D. Measurements Intervals [place] Rate: 49 P: 35 VT: 161 QRS: 20 QRSD: 93 T: 11 QT: 454 QTc: 414 Interpretive Statements SINUS BRADYCARDIA WITH SINUS ARRHYTHMIA LOW QRS VOLTAGE IN PRECORDIAL LEADS [QRS DEFLECTION < 1.0 mV IN CHEST LEADS] POSSIBLE ANTERIOR MYOCARDIAL INFARCTION [30 ms Q WAVE IN V3/V4, OR R < 0.2 mV IN V4], OF INDETERMINATE AGE Compared to ECG 09/27/2018 16:25:49 Low QRS voltage now present Myocardial infarct finding now present Sinus tachycardia no longer present T-wave abnormality no longer present Possible ischemia no longer present Electronically Signed On 10-19-2020 13:06:18 CDT by Tammy Lowe M.D. [id number]
[2020-10-18 17:24] LABS: C Reactive Protein 7.2 mg/L (0.0-4.9)
[2020-10-18 17:32] LABS: Procalcitonin 0.05 ng/mL (0-0.5)
[2020-10-18 18:24] LABS: Erythrocyte Sedimentation Rate 22 mm/hr (0-15)
[2020-10-18 18:51] LABS: Troponin T (5th) Once 6 ng/L (0-10)
[2020-10-18] MEDS: sodium chloride 0.9% 1,000 ML 75 ML IV (19:01)
[2020-10-18] MEDS: pantoprazole 40 mg SDV IVP (19:04)
[2020-10-18] MEDS: amlodipine 10 mg Tablet PO (19:06)
[2020-10-18] MEDS: enoxaparin 40 mg/0.4 mL Syringe SUBCUT (19:07)
[2020-10-18] MEDS: morphine 4 mg/mL SDV 1 mL 2 MG IVP (19:19)
[2020-10-18] MEDS: ciprofloxacin 400 MG/200 ML PREMIX 200 MG IV (19:20)
[2020-10-18] MEDS: metroNIDAZOLE IV 500 MG/100 ML PREMIX 100 MG IV (21:39)
[2020-10-18] MEDS: acetaminophen 325 mg Tablet 650 MG PO (21:39)
--- NOTE | 2020-10-18 22:19 | ECG_ITS ---
[facility] Test Date: 2020-10-19 Pat Name: Filomena Hernandez Department: Room: 250 Gender: Female Screwdown Operator: DESTINY : 1980 Requested By: Sp Cruz Order Number: [id number] Frances MD: Tammy Lowe M.D. Measurements Intervals [place] Rate: 63 P: 38 IN: 167 QRS: 11 QRSD: 86 T: 7 QT: 442 QTc: 453 Interpretive Statements SINUS RHYTHM LOW QRS VOLTAGE IN PRECORDIAL LEADS [QRS DEFLECTION < 1.0 mV IN CHEST LEADS] Compared to ECG 10/18/2020 18:08:23 Sinus bradycardia no longer present Sinus arrhythmia no longer present Myocardial infarct finding no longer present Electronically Signed On 10-19-2020 13:19:35 CDT by Tammy Lowe M.D. [id number]
[2020-10-19] VITALS (12 sets, daily range): BP systolic 107–155; BP diastolic 73–96; PULSE 55–78; RESP 15–20; TEMP 36.5–37.2; O2SAT 96–100
[2020-10-19] MEDS: morphine 4 mg/mL SDV 1 mL 2 MG IVP ×5 (00:04→21:18)
[2020-10-19] MEDS: metroNIDAZOLE IV 500 MG/100 ML PREMIX 100 MG IV ×3 (05:33→21:17)
[2020-10-19] MEDS: ciprofloxacin 400 MG/200 ML PREMIX 200 MG IV ×2 (06:47→18:25)
[2020-10-19 07:52] LABS: Basophils % 0.1 %; Eosinophils # 0.1 10^3/uL (0.0-0.8); Eosinophils % 0.9 %; Hematocrit 42.5 % (37.0-47.0); Lymphocytes # 2.8 10^3/uL (0.8-4.8); Lymphocytes % 34.6 %; Mean Corpuscular HGB Conc 32.9 g/dL (30.0-36.0); Mean Platelet Volume 10.4 fL (7.4-10.4); Monocytes # 0.4 10^3/uL (0.2-0.9); Monocytes % 4.9 %; Neutrophils # 4.82 10^3/uL (1.8-7.7); Neutrophils % 59.3 %; Nucleated Red Blood Cells % 0 %; Platelet Count 201 10^3/cmm (130-400); Red Blood Count 4.52 10^6/uL (4.1-5.3); Red Cell Distribution Width 13.3 % (12.1-15.1); White Blood Count 8.1 10^3/uL (4.0-10.0)
[2020-10-19 08:09] LABS: Lactic Sepsis W/Reflex 0.6 mmol/L (0.5-2.2)
[2020-10-19 08:10] LABS: Estmated Average Glucose 108; Hemoglobin A1C 5.4 % (4.0-6.0)
[2020-10-19 08:24] LABS: Alanine Aminotransferase 11 U/L (0-33); Albumin Level 3.4 g/dL (3.5-5.2); Alkaline Phosphatase 77 IU/L (35-105); Anion Gap 14.8 (5-19); Aspartate Amino Transferase 17 U/L (0-32); Blood Urea Nitrogen 6 mg/dL (6-20); Calcium 8.3 mg/dL (8.5-10.5); Carbon Dioxide 25 mmol/L (22-29); Chloride 101 mmol/L (98-107); Globulin 3.1 g/dL (1.3-4.6); Glucose 115 mg/dL (65-115); Magnesium 1.6 mg/dL (1.7-2.3); Osmolality Calculated 283 mOsm/kg (285-295); Phosphorus 3.4 mg/dL (2.5-4.5); Potassium 3.8 mmol/L (3.5-5.1); Sodium 137 mmol/L (136-145); Thyroid Stimulating Hormone 1.66 uIU/mL (0.27-4.20); Total Bilirubin 0.6 mg/dL (0.15-1.2); Total Protein 6.5 g/dL (6.6-8.7)
[2020-10-19] MEDS: ondansetron 2 mg/ML SDV 2 mL 4 MG IVP (08:25)
--- NOTE | 2020-10-19 09:40 | PC.CHAP ---
Pastoral Care Encounter/Spiritual Assessment Type of Contact [] Declined cafeteria cashier visit [] Patient/Family/Request visit [] Outpatient visit [] Follow-up visit [] Physician referral [] Code/Alert [x] Routine visit [] Staff referral [] Actively dying [] Patient sleeping [] Family support [] [] Out of room [] Palliative care [] [] Receiving care in room [] Pre-surgical visit [] Trauma [] Long length of stay [] ICU visit [] Other: Relational/Emotional Strength [x] Patient feels connected with others/family/visitors/staff [] Distress [] Loneliness/isolation [] Abandonment Spirituality of Patient [x] Person of Kylie [] Attends Synagogue of their Kylie [x] Believes in Prayer [] Reads Bible or Hindu materials [] There are Spiritual issues to be addressed Pediatrician Interventions [x] Prayer [x] Active listening [x] Non-anxious presence [x] Spiritual/emotional support [] Crisis/trauma care [] Spiritual counseling [] Bereavement support [] Provided bereavement packet [] Provided Bible/devotional materials [] Provided toy/stuffed animal, coloring book to patient or family member [] Provided Communion [] Anointing/[place] [] Salvation [x] Completed spiritual assessment [] Other: Impact on Illness or Injury [] Angry [] Fearful [] Anxious [] Often cries [] Exhaustion [] Unable to work [] Unable to attend religion [] Unable to walk/stand [] Unable to read [] Unable to drive [] Unable to eat/drink [] Unable to sleep [] Unable to be with family [] Patient intubated [] Other: Summary patient has pain Time spent with patient 10 min
[2020-10-19] MEDS: sodium chloride 0.9% 1,000 ML 75 ML IV (10:26)
[2020-10-19] MEDS: TRAMadol 50 mg Tablet PO ×2 (11:57→18:26)
[2020-10-19] MEDS: polyethylene glycol 3350 Pkt 17 gm PO (11:57)
[2020-10-19] MEDS: nicotine 14 mg Patch 1 PATCH TRANSDERMA (16:34)
--- NOTE | 2020-10-19 17:10 | P.PN_ITS ---
Subjective Subjective: Interval history: Patient was seen this morning, her abdominal pain is persisting in the left lower quadrant, no nausea, vomiting, is able to keep down clear liquids, she does tell me she is constipated Vitals/I&O/Wt Last Vital Signs Temp 98.7 F 10/19/20 16:28 Pulse 55 L 10/19/20 16:28 Resp 18 10/19/20 16:28 BP 142/88 10/19/20 16:28 Pulse Ox 98 10/19/20 16:28 10/19/20 10/19/20 10/19/20 06:59 14:59 22:59 Intake Total 300 / 1400 2120 / 2120 Output Total 550 / 550 1050 / 1050 100 / 1150 Balance -250 / 850 1070 / 1070 -100 / 970 Weight last 48 hrs Weight 104.326 kg Weight 104.326 kg Physical Exam Const: COMMON NORMALS: no acute distress and patient oriented x3 Neck/C-Spine: COMMON NORMALS: no JVD Resp: COMMON NORMALS: normal respiratory effort, No retractions, No use of accessory muscles and clear to auscultation bilaterally AUSCULTATION: clear to auscultation bilaterally Cardio: COMMON NORMALS: no JVD, regular rate, regular rhythm, S1 normal heart sound present and S2 normal heart sound present RATE: regular rate RHYTHM: regular rhythm HEART SOUNDS: S1 normal heart sound present and S2 normal heart sound present GI: COMMON NORMALS: Normal to inspection, nondistended, normoactive bowel sounds present and Soft to palpation PALPATION: Yes Soft to palpation and Yes Tenderness to palpation present (GI) Details: LLQ Extremity: COMMON NORMALS: no pedal edema Neuro: COMMON NORMALS: patient oriented x3 Psych: COMMON NORMALS: mental status grossly normal Data : 10/19/20 07:40 10/19/20 07:40 Micro: Microbiology 10/18/20 22:08 Blood Culture - Preliminary Blood SPECIMEN COLLECTED 10/18/20 22:00 Blood Culture - Preliminary Blood SPECIMEN COLLECTED A&P Assessment and plan (1) Left lower quadrant abdominal pain: - Pain is primarily in the left lower quadrant, but does have generalized tenderness -WBC 8.1 -UA unremarkable for UTI, no radiographic evidence of pyelonephritis -CT of the abdomen pelvis has no acute findings, did show dilated CBD, MRCP no acute findings -MRCP has no acute findings -No significant transaminitis, no bili elevation -Lipase 230 -Does have a history of diverticulitis in the past -Urine toxicology positive for opiates, amphetamines, marijuana Plan: -Pain control with morphine 2 mg every 4 hours, will limit pain medication given history previous drug use, positive urine toxicology screen -Zofran for nausea -Bowel regimen, Colace, MiraLAX -Continue Cipro and Flagyl -Follow blood cultures, serial abdominal exams -Protonix for GI prophylaxis -Lovenox for DVT prophylaxis -Full code Plan for today continue antibiotics, continue fluids, add bowel regimen Status: Acute Additional A&P Information Does report that recently she was being seen at Suboxone clinic, however looking at her external med list, I cannot confirm that she has been on Suboxone Attestations Medical Necessity Statement*: Patient requires hospitalization for left lower quadrant abdominal pain, concerning for acute diverticulitis Coding Level of Care Code Acute Mechanical Artist for Stacy Fry Diagnoses Left lower quadrant abdominal pain R10.32
[2020-10-19] MEDS: docusate sodium 100 mg Capsule PO (18:25)
[2020-10-19] MEDS: enoxaparin 40 mg/0.4 mL Syringe SUBCUT (18:25)
[2020-10-19] MEDS: acetaminophen 325 mg Tablet 650 MG PO (18:26)
[2020-10-19] MEDS: amlodipine 10 mg Tablet PO (18:26)
[2020-10-19] MEDS: pantoprazole 40 mg SDV IVP (19:05)
[2020-10-20] VITALS (11 sets, daily range): BP systolic 126–147; BP diastolic 81–92; PULSE 60–91; RESP 16–19; TEMP 36.4–36.8; O2SAT 91–99
[2020-10-20] MEDS: acetaminophen 325 mg Tablet 650 MG PO ×3 (00:49→15:31)
[2020-10-20] MEDS: TRAMadol 50 mg Tablet PO ×4 (00:49→23:08)
[2020-10-20] MEDS: sodium chloride 0.9% 1,000 ML 75 ML IV ×2 (02:51→17:59)
[2020-10-20] MEDS: metroNIDAZOLE IV 500 MG/100 ML PREMIX 100 MG IV ×3 (05:36→20:16)
[2020-10-20] MEDS: morphine 4 mg/mL SDV 1 mL 2 MG IVP ×3 (05:36→18:09)
[2020-10-20] MEDS: ciprofloxacin 400 MG/200 ML PREMIX 200 MG IV ×2 (06:30→18:00)
[2020-10-20 06:54] LABS: Basophils % 0.2 %; Eosinophils # 0.1 10^3/uL (0.0-0.8); Eosinophils % 1.1 %; Hematocrit 44.7 % (37.0-47.0); Hemoglobin 14.5 g/dL (11.5-15.3); Lymphocytes # 2.5 10^3/uL (0.8-4.8); Lymphocytes % 28.1 %; Mean Corpuscular HGB Conc 32.4 g/dL (30.0-36.0); Mean Corpuscular Hemoglobin 30.7 pg (28.0-34.0); Mean Corpuscular Volume 94.5 fl (81-99); Mean Platelet Volume 11.3 fL (7.4-10.4); Monocytes # 0.5 10^3/uL (0.2-0.9); Monocytes % 5.2 %; Neutrophils % 65.1 %; Nucleated Red Blood Cells % 0 %; Platelet Count 200 10^3/cmm (130-400); Red Blood Count 4.73 10^6/uL (4.1-5.3); Red Cell Distribution Width 13.2 % (12.1-15.1); White Blood Count 8.8 10^3/uL (4.0-10.0)
[2020-10-20 07:20] LABS: Alanine Aminotransferase 11 U/L (0-33); Albumin Level 3.3 g/dL (3.5-5.2); Alkaline Phosphatase 79 IU/L (35-105); Anion Gap 14.5 (5-19); Aspartate Amino Transferase 15 U/L (0-32); Blood Urea Nitrogen 5 mg/dL (6-20); Calcium 8.9 mg/dL (8.5-10.5); Carbon Dioxide 25 mmol/L (22-29); Chloride 102 mmol/L (98-107); Globulin 3.3 g/dL (1.3-4.6); Glucose 82 mg/dL (65-115); Magnesium 1.5 mg/dL (1.7-2.3); Osmolality Calculated 282 mOsm/kg (285-295); Potassium 3.5 mmol/L (3.5-5.1); Sodium 138 mmol/L (136-145); Total Bilirubin 0.7 mg/dL (0.15-1.2); Total Protein 6.6 g/dL (6.6-8.7)
[2020-10-20] MEDS: polyethylene glycol 3350 Pkt 17 gm PO (08:50)
[2020-10-20] MEDS: nicotine 14 mg Patch 1 PATCH TRANSDERMA (08:51)
[2020-10-20] MEDS: docusate sodium 100 mg Capsule PO ×2 (08:51→17:59)
--- NOTE | 2020-10-20 12:19 | P.PN_ITS ---
Subjective Subjective: Interval history: Patient was seen this morning, her abdominal pain has improved, tolerating clears, no nausea, no vomiting, no fevers but has not had a bowel movement, she wants to try a diet Vitals/I&O/Wt Last Vital Signs Temp 97.6 F 10/20/20 11:16 Pulse 73 10/20/20 11:16 Resp 18 10/20/20 11:16 BP 139/82 10/20/20 11:16 Pulse Ox 95 10/20/20 11:16 10/19/20 10/20/20 10/20/20 22:59 06:59 14:59 Intake Total 440 / 2560 1200 / 3760 560 / 560 Output Total 100 / 1150 1200 / 2350 Balance 340 / 1410 0 / 1410 560 / 560 Weight last 48 hrs Weight 104.326 kg Physical Exam Const: COMMON NORMALS: no acute distress and patient oriented x3 HENMT: COMMON NORMALS: normocephalic HEAD & SCALP: normocephalic Resp: COMMON NORMALS: normal respiratory effort, No retractions, No use of accessory muscles and clear to auscultation bilaterally AUSCULTATION: clear to auscultation bilaterally Cardio: COMMON NORMALS: regular rate, regular rhythm, S1 normal heart sound present and S2 normal heart sound present RATE: regular rate RHYTHM: regular rhythm HEART SOUNDS: S1 normal heart sound present and S2 normal heart sound present GI: COMMON NORMALS: Normal to inspection, nondistended, normoactive bowel soun ds present and Soft to palpation PALPATION: Yes Soft to palpation, Yes Tenderness to palpation present (GI) Details: LLQ, No Guarding due to palpation present (GI) and No Rigid due to palpation Extremity: COMMON NORMALS: no pedal edema Neuro: COMMON NORMALS: patient oriented x3 Psych: COMMON NORMALS: mental status grossly normal Data : 10/20/20 04:52 10/20/20 04:52 Micro: Microbiology 10/18/20 22:08 Blood Culture - Preliminary Blood NEGATIVE TO DATE 10/18/20 22:00 Blood Culture - Preliminary Blood NEGATIVE TO DATE A&P Assessment and plan (1) Left lower quadrant abdominal pain: - Pain is primarily in the left lower quadrant, but does have generalized tenderness -WBC 8.8 -UA unremarkable for UTI, no radiographic evidence of pyelonephritis -CT of the abdomen pelvis has no acute findings, did show dilated CBD, MRCP no acute findings -MRCP has no acute findings -No significant transaminitis, no bili elevation -Does have a history of diverticulitis in the past -Urine toxicology positive for opiates, amphetamines, marijuana Plan: -Transition diet to GI soft diet, aggressive bowel regiment -Pain control with morphine 2 mg every 4 hours, will limit pain medication given history previous drug use, positive urine toxicology screen -Zofran for nausea -Bowel regimen, Colace, MiraLAX, milk of magnesia -Continue Cipro and Flagyl -Follow blood cultures, serial abdominal exams -Protonix for GI prophylaxis -Lovenox for DVT prophylaxis -Full code Plan for today continue antibiotics, continue fluids, add bowel regimen, transition to GI soft diet Status: Acute Additional A&P Information Does report that recently she was being seen at Suboxone clinic, however looking at her external med list, I cannot confirm that she has been on Suboxone Attestations Medical Necessity Statement*: Patient requires hospitalization for acute dive rticulitis, left lower quadrant pain Coding Level of Care Code Acute Lawn Service Supervisor for Chg Fwd Diagnoses Left lower quadrant abdominal pain R10.32
[2020-10-20] MEDS: amlodipine 10 mg Tablet PO (17:59)
[2020-10-20] MEDS: enoxaparin 40 mg/0.4 mL Syringe SUBCUT (18:01)
[2020-10-20] MEDS: pantoprazole 40 mg SDV IVP (18:09)
[2020-10-21] VITALS: BP 131/84; PULSE 72; RESP 16; TEMP 36.7; O2SAT 92
[2020-10-21] MEDS: acetaminophen 325 mg Tablet 650 MG PO (03:20)
[2020-10-21 03:50] VITALS: BP 130/88; PULSE 91; RESP 18; TEMP 36.8; O2SAT 93
[2020-10-21] MEDS: metroNIDAZOLE IV 500 MG/100 ML PREMIX 100 MG IV (04:10)
[2020-10-21] MEDS: ciprofloxacin 400 MG/200 ML PREMIX 200 MG IV (05:36)
[2020-10-21] MEDS: TRAMadol 50 mg Tablet PO (05:41)
[2020-10-21 05:50] LABS: Basophils % 0.4 %; Eosinophils # 0.1 10^3/uL (0.0-0.8); Eosinophils % 1.4 %; Hematocrit 47.6 % (37.0-47.0); Hemoglobin 15.4 g/dL (11.5-15.3); Lymphocytes # 2.6 10^3/uL (0.8-4.8); Lymphocytes % 31.9 %; Mean Corpuscular HGB Conc 32.4 g/dL (30.0-36.0); Mean Corpuscular Hemoglobin 30.9 pg (28.0-34.0); Mean Corpuscular Volume 95.6 fl (81-99); Mean Platelet Volume 10.2 fL (7.4-10.4); Monocytes # 0.5 10^3/uL (0.2-0.9); Monocytes % 6.5 %; Neutrophils # 4.76 10^3/uL (1.8-7.7); Neutrophils % 59.3 %; Nucleated Red Blood Cells % 0 %; Platelet Count 199 10^3/cmm (130-400); Red Blood Count 4.98 10^6/uL (4.1-5.3); Red Cell Distribution Width 13.1 % (12.1-15.1)
[2020-10-21 06:00] VITALS: PULSE 72
[2020-10-21 06:02] LABS: Alanine Aminotransferase 15 U/L (0-33); Albumin Level 3.5 g/dL (3.5-5.2); Alkaline Phosphatase 76 IU/L (35-105); Aspartate Amino Transferase 25 U/L (0-32); Blood Urea Nitrogen 4 mg/dL (6-20); Calcium 8.6 mg/dL (8.5-10.5); Carbon Dioxide 27 mmol/L (22-29); Chloride 103 mmol/L (98-107); Globulin 3.3 g/dL (1.3-4.6); Glucose 92 mg/dL (65-115); Magnesium 1.7 mg/dL (1.7-2.3); Osmolality Calculated 287 mOsm/kg (285-295); Phosphorus 3.1 mg/dL (2.5-4.5); Sodium 140 mmol/L (136-145); Total Bilirubin 0.7 mg/dL (0.15-1.2); Total Protein 6.8 g/dL (6.6-8.7)
[2020-10-21 06:15] LABS: Anion Gap 13.4 (5-19); Potassium 3.4 mmol/L (3.5-5.1)
[2020-10-21 07:47] VITALS: BP 151/97; PULSE 75; RESP 18; TEMP 36.7; O2SAT 94
[2020-10-21] MEDS: polyethylene glycol 3350 Pkt 17 gm PO (08:22)
[2020-10-21] MEDS: docusate sodium 100 mg Capsule PO (08:22)
[2020-10-21] MEDS: nicotine 14 mg Patch 1 PATCH TRANSDERMA (08:22)
--- NOTE | 2020-10-21 10:33 | PM.DCS ---
Discharge Providers Date of Admission: 10/19/20 17:10 Date of Discharge: October 21, 2020 Attending Provider at Admission: Sp Cruz MD Attending Provider at Discharge: Sp Cruz MD Primary Care Provider: ISAURA Davis Diagnoses at Discharge Discharge Diagnosis (1) Left lower quadrant abdominal pain: Status: Acute Reason for Visit Reason for Visit: ABD PAIN; CHEST TIGHTNESS Hospital Course Hospital Course Filomena Hernandez is a 40 year old female with a past medical history of diverticulitis, peripheral neuropathy, history of opioid addiction recently going to a Suboxone clinic, patient tells me that she lost her Medicare, so she lost a lot of her medications, she tells me that she has episodes of diverticulitis and Protonix typically help her, she tells me that last night, she started to develop left lower quadrant pain -CT of the abdomen pelvis has no acute findings, did show dilated CBD, MRCP no acute findings -MRCP has no acute findings Patient was admitted to [facility] for acute diverticulitis, with intractable nausea, vomiting, managed with bowel rest, IV fluids, pain control, broad-spectrum antibiotic therapy, clinically monitored. Patient clinically improved, remained afebrile, abdominal pain improved, transition to GI soft diet, tolerated well, discharged home. Patient was discharged on 7 days of Cipro Flagyl, instructions to continue GI soft diet, and advance as tolerated, follow-up with primary care provider in 1 week, monitor for fevers or worsening abdominal pain if so go to emergency room. In terms of pain control, patient does not go to the Suboxone clinic anymore, I have discharged her on a short supply of hydrocodone for her abdominal pain, to be used sparingly for abdominal pain, to use as prescribed, do not mix with any other controlled substances, do not mix with alcohol, do not operate heavy machinery or drive while taking the medication. Patient's U tox was positive for methamphetamines, marijuana, opiates. Patient adamantly denies methamphetamine use or opiate use, but does report marijuana use. Patient was strongly advised to not use any IV drugs, or any other drugs. Physical Exam Const: COMMON NORMALS: no acute distress and patient oriented x3 Resp: COMMON NORMALS: normal respiratory effort, No retractions, No use of accessory muscles and clear to auscultation bilaterally AUSCULTATION: clear to auscultation bilaterally Cardio: COMMON NORMALS: regular rate, regular rhythm, S1 normal heart sound present and S2 normal heart sound present RATE: regular rate RHYTHM: regular rhythm HEART SOUNDS: S1 normal heart sound present and S2 normal heart sound present GI: COMMON NORMALS: Normal to inspection, nondistended, normoactive bowel sounds present, Soft to palpation and non-tender PALPATION: Yes Soft to palpation Extremity: COMMON NORMALS: no pedal edema Neuro: COMMON NORMALS: patient oriented x3 Psych: COMMON NORMALS: mental status grossly normal Discharge Data Data Completed and Pending: Completed Studies During Hospitalization Category Date Time Status CT abdomen pelvis w con* [id number] Urge nt Cat Scan 10/18/20 08:39 Completed MR MRCP [id number] Urg ent MRI 10/18/20 10:14 Completed Pending at discharge Category Date Time Status Blood Culture Sta t Lab 10/18/20 22:08 Results Miscellaneous Veronica t Routine Lab 10/20/20 13:42 Received OVA and Parasites , Conc and PE Rout ine Lab 10/20/20 13:43 Received Labs from last 24 hours 10/21/20 10/21/20 10/20/20 05:29 05:29 13:43 WBC 8.0 RBC 4.98 Hgb 15.4 H Hct 47.6 H MCV 95.6 MCH 30.9 MCHC 32.4 RDW 13.1 Plt Count 199 MPV 10.2 Neut % (Auto) 59.3 Lymph % (Auto) 31.9 [place] % (Auto) 6.5 Eos % (Auto) 1.4 Baso % (Auto) 0.4 Neut # (Auto) 4.76 Lymph # (Auto) 2.6 [place] # (Auto) 0.5 Eos # (Auto) 0.1 Baso # (Auto) 0.0 Nucleated RBC % (a uto) 0 Nucleated RBCs # 0.0 Sodium 140 Potassium 3.4 L Chloride 103 Carbon Dioxide 27 Anion Gap 13.4 BUN 4 L Creatinine 0.3 L GFR Calculation 244.0 H Glucose 92 Calculated Osmolal ity 287 Calcium 8.6 Phosphorus 3.1 Magnesium 1.7 Total Bilirubin 0.7 AST 25 ALT 15 Alkaline Phosphata se 76 Total Protein 6.8 Albumin 3.5 Globulin 3.3 Misc Test Referenc e Cancelled 10/20/20 13:42 WBC RBC Hgb Hct MCV MCH MCHC RDW Plt Count MPV Neut % (Auto) Lymph % (Auto) [place] % (Auto) Eos % (Auto) Baso % (Auto) Neut # (Auto) Lymph # (Auto) [place] # (Auto) Eos # (Auto) Baso # (Auto) Nucleated RBC % (a uto) Nucleated RBCs # Sodium Potassium Chloride Carbon Dioxide Anion Gap BUN Creatinine GFR Calculation Glucose Calculated Osmolal ity Calcium Phosphorus Magnesium Total Bilirubin AST ALT Alkaline Phosphata se Total Protein Albumin Globulin Misc Test Referenc e Pending Vitals: Last Vital Signs Temp 98.0 F 10/21/20 07:47 Pulse 75 10/21/20 07:47 Resp 18 10/21/20 07:47 BP 151/97 10/21/20 07:47 Pulse Ox 94 10/21/20 07:47 Discharge Plan Discharge Patient Disposition: Home Condition: Stable Prescriptions: New hydrocodone-acetaminophen 5-325 mg tablet 1 tab PO DAILY PRN (Reason: pain) 5 Days Qty: 5 RF: 0 docusate sodium 100 mg Capsule 100 mg PO BID 30 Days Qty: 60 RF: 0 ciprofloxacin HCl [Cipro] 500 mg tablet 500 mg PO Q12H 7 Days Qty: 14 RF: 0 metoprolol tartrate 25 mg tablet 12.5 mg PO BID 30 Days Qty: 30 RF: 0 metronidazole [Flagyl] 500 mg tablet 500 mg PO Q8H 7 Days Qty: 21 RF: 0 amlodipine 10 mg Tablet 10 mg PO Q24H 30 Days Qty: 30 RF: 0 polyethylene glycol 3350 17 gram Powder In Packet 17 g PO DAILY 30 Days Qty: 30 RF: 0 Continued gabapentin 400 mg capsule 400 mg PO .five times daily 30 Days Qty: 150 RF: 5 Discontinued metoprolol tartrate 50 mg tablet 50 mg PO BID 30 Days Qty: 60 RF: 5 Discharge Orders: Discharge Order (Routine); Ordered 10/21/20 Ordered By: Sp Cruz Referrals: Diane Landon FNP-C [Primary Care Provider] - Discharge Diet: GI Soft Discharge Activity: Resume usual activity Patient Instructions: Opioid Safety Activity Restrictions/Additional Instructions: -Please use hydrocodone sparingly for abdominal pain, please use as prescribed -Do not use hydrocodone while driving or operating heavy machinery -Do not mix hydrocodone with alcohol -Use antibiotics as prescribed for acute diverticulitis -Continue GI soft diet -Slowly advance diet as tolerated Discharge Attestations Time Spent in Discharge Care*: less than 30 min Quality Metrics Clinical Quality Measures During this hospital stay, did patient experience: None Coding Level of Care Code Acute Chg [facility] note Diagnoses Left lower quadrant abdominal pain R10.32
[2020-10-21] MEDS: metoprolol tartrate 25 mg Tablet 12.5 MG PO (11:08)
[2020-10-21 11:37] VITALS: BP 151/97; PULSE 69; RESP 18; TEMP 36.9; O2SAT 98
--- NOTE | 2020-10-21 12:00 | PC.RESP ---
SMOKING CESSATION INFORMATION SENT TO PATIENT.
--- NOTE | 2020-10-21 13:27 | PC.RESP ---
SMOKING CESSATION INFORMATION SENT TO PATIENT.
== END 2020-10-21 12:13 | disposition home or self-care (01) | DRG 392 ==
LOC: ER 15:45 → MEDSURG 10-19 08:17
PROVIDERS: Admitting Provider Family Medicine; Emergency Provider Physician Assistant; PCP Nurse Practitioner Family; Visit Provider Family Medicine
DX: K57.92 Diverticulitis of intestine, part unspecified, without perforation or abscess without bleeding (principal); R11.2 Nausea with vomiting, unspecified; R82.5 Elevated urine levels of drugs, medicaments and biological substances; I10 Essential (primary) hypertension; G62.9 Polyneuropathy, unspecified; F17.210 Nicotine dependence, cigarettes, uncomplicated; Z86.59 Personal history of other mental and behavioral disorders
CPT/HCPCS: 36415; 74177; 74181; 80053; 80306; 80307; 81003; 82274; 83036; 83605; 83630; 83690; 83735; 84100; 84145; 84443; 84484; 84703; 85025; 85651; 86140; 87040; 87046; 87177; 87209; 93005; 96361; 96372; 96374; 96375; 99285; C9113; G0378; J0744; J1650; J1885; J2270; J2405; J3010; J7030; Q9967; S0030

== ENCOUNTER → 2020-11-09 11:16 | Outpatient (BNVA) | payer MEDICAID, SELFPAY | PROVIDERS: PCP Nurse Practitioner Family; Referring Provider Nurse Practitioner Family; Visit Provider Orthopaedic Surgery | DX: M17.0 Bilateral primary osteoarthritis of knee (principal) | CPT/HCPCS: 73560; 73565 ==

== ENCOUNTER → 2021-01-05 11:02 | Outpatient (BNVA) | payer BC, MEDICAID, SELFPAY | PROVIDERS: PCP Nurse Practitioner Family; Visit Provider Orthopaedic Surgery | DX: Z01.812 Encounter for preprocedural laboratory examination (principal); Z20.822 Contact with and (suspected) exposure to COVID-19 | CPT/HCPCS: 87635 ==

== ENCOUNTER 2021-01-11 09:42 | Observation (INO) | payer BC, MEDICAID, SELFPAY ==
[2021-01-01 11:31] VITALS: BMI 38.2
[2021-01-01 12:16] LABS: Anion Gap 16.1 (5-19); Blood Urea Nitrogen 10 mg/dL (6-20); Calcium 9.3 mg/dL (8.5-10.5); Carbon Dioxide 27 mmol/L (22-29); Chloride 96 mmol/L (98-107); Glucose 138 mg/dL (65-115); Osmolality Calculated 283 mOsm/kg (285-295); Potassium 3.1 mmol/L (3.5-5.1); Sodium 136 mmol/L (136-145)
[2021-01-11] VITALS (26 sets, daily range): BP systolic 106–133; BP diastolic 68–89; PULSE 77–104; RESP 15–25; TEMP 36.4–36.9; O2SAT 90–98
[2021-01-11] MEDS: oxyCODONE 20 mg ER (12 HR) Tablet PO (06:42)
[2021-01-11] MEDS: gabapentin 300 mg Capsule PO (06:42)
[2021-01-11] MEDS: acetaminophen 500 mg Tablet 1000 MG PO ×3 (06:42→17:52)
[2021-01-11] MEDS: CELEcoxib 200 mg Capsule 400 MG PO (06:42)
[2021-01-11] MEDS: sodium chloride 0.9% 1,000 ML 30 ML IV (06:43)
--- NOTE | 2021-01-11 06:56 | ANES.PREANE2 ---
Pre-Anesthetic Assessment Pre-Anesthetic Assessment: Height/Weight: Height 1.65 m Weight 104.326 kg Temp Pulse Resp BP Pulse Ox 98.2 F 104 H 18 122/78 95 01/11/21 06:09 01/11/21 06:09 01/11/21 06:09 01/11/21 06:09 01/11/21 06:09 Preop Diagnosis: Osteoarthritis Right knee Proposed Procedure: Operation Date: 01/11/21 07:00 Proposed Procedures p Total Knee Arthroplasty left 76526 M17.12(Right) - Jasson Silvestre MD Was Beta Cailin taken within 24 hours: N/A Was Clonidine taken within 24 hours: N/A Last intake: Intake Last Liquid Date 01/10/21 Last Liquid Time 23:00 Last Solid Date 01/10/21 Last Solid Time 18:00 Social: Social History: Alcohol and Tobacco Exam: Pre-Anes Outpt Exam: alert, oriented x 3 and regular rate & rhythm Airway: Submandibular: WNL Cervical ROM: WNL MP: 2 Dentition: False (uppers) Pulmonary: Pulmonary: COPD CV/HEM: CV/HEM: HTN Musc/skel: Musc/skel: OA/DJD Neuropsych: Neuropsych: Neuropathy Anesthetic Plan: ASA status: 3 Anesthesia: Regional (specify below) (SAB with adductor blk) Risk of > 500 ml blood loss (7ml/kg in children): No Meds/Allergies Current Medications: Current Medications Generic Name Dose Route Start Last Admin Trade Name Freq PRN Reason Stop Dose Admin Sodium Chloride 1,000 mls @ 30 ml s/hr 01/11/21 06:00 01/11/21 06:43 Sodium Chloride 0.9% IV 01/12/21 05:59 30 mls/hr .Q24H SHYAM Administration PFSH Anesthesia PFSH: Medical History Alcohol dependence Degeneration of meniscus of right knee Essential hypertension Osteoarthritis of left knee Peripheral neuropathy Surgical History History of hysterectomy Family History Mother Brain cancer Father Diabetes Hypertension Social History Second hand smoke exposure: Yes Alcohol intake: former Caregiver/support person: Yes Lives independently: Yes Marital status: Single Current occupational status: unemployed History of recent travel: No Current gender identity: Female Special cristina needs: No Agree to transfusion: Yes Data Anesthesia CBC & Chem 7: 01/01/21 11:46 Cardiac Studies: No Data to Display
--- NOTE | 2021-01-11 07:12 | W.PM.OPSFHP ---
Same Day Surgery H&P Indication for Procedure/HPI DATE OF PROCEDURE: January 11, 2021 CHIEF COMPLAINT/INDICATIONFOR SURGICAL PROCEDURE: Osteoarthritis right knee, here for total knee PREOP DIAGNOSIS: Osteoarthritis Right knee PLANNED PROCEDRUE: Operation Date: 01/11/21 07:00 Proposed Procedures p Total Knee Arthroplasty left 97783 M17.12(Right) - Jasson Silvestre MD Progressive right knee pain. Unresponsive to medications and injections. 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 Here for right total knee arthroplasty to improve pain and function Medications/Allergies* Allergies/Adverse Reactions Allergy/AdvReac Type Severity Reaction Status Date / Time No Known Allergies Allergy Verified 12/10/20 15:27 Current Medications: Generic Name Dose Route Start Last Admin Trade Name Freq PRN Reason Stop Dose Admin Sodium Chloride 1,000 mls @ 30 mls/hr 01/11/21 06:00 01/11/21 06:43 Sodium Chloride 0.9% IV 01/12/21 05:59 30 mls/hr .Q24H SHYAM Administration Pertinent History/Comorbid Conditions* Medical History (Updated 12/10/20 @ 15:39 by AMPARO Méndez) Alcohol dependence Degeneration of meniscus of right knee Essential hypertension Osteoarthritis of left knee Peripheral neuropathy Surgical History (Updated 10/18/20 @ 16:25 by Sp Cruz MD) History of hysterectomy Family History (Updated 10/18/20 @ 16:26 by Sp Cruz MD) Brain cancer Mother Diabetes Father Hypertension Father Social History Second hand smoke exposure: Yes Alcohol intake: former Caregiver/support person: Yes Lives independently: Yes Marital status: Single Current occupational status: unemployed History of recent travel: No Current gender identity: Female Special cristina needs: No Agree to transfusion: Yes Pertinent Exam Findings alert, oriented x 3, clear to auscultation bilaterally, regular rate & rhythm and operative site marked Recommendations Surgery/Procedure today Coding Level of Care Code Acute 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
[2021-01-11] MEDS: ketorolac 30 mg/mL INJ IM (08:00)
[2021-01-11] MEDS: EPINEPHrine 1 mg/mL INJ XX (08:01)
[2021-01-11] MEDS: tranexamic acid 1,000 mg/10mL SDV 1000 MG IRRIGATION (08:02)
--- NOTE | 2021-01-11 09:25 | XRR_ITS ---
PROCEDURE INFORMATION: Exam: XR Right Knee Exam date and time: 01/11/2021 9:25 AM Age: 40 years old Clinical indication: Condition or disease; Joint replacement status; Right; Prior surgery; Surgery date: Post-operative (0-2 days); Surgery type: Total knee post op; Additional info: Right total knee arthroplasty TECHNIQUE: Imaging protocol: XR Right knee. Views: 1 or 2 views. COMPARISON: CR XR knees AP WB w BI lmt ORTH 11/09/2020 11:23 AM FINDINGS: Bones/joints: The patient has undergone recent insertion of a total knee prosthesis. Some gas is present in the soft tissues from the recent surgery. No fractures are seen. Soft tissues: See Bones/joints finding. XR/XR knee RT 1-2V 08666 IMPRESSION: Satisfactory position of the total knee prosthesis. Radiation Dose CTDIVOL = (mGy): DLP = (mGy-cm)
--- NOTE | 2021-01-11 09:29 | PM.OP ---
Operative Report Date of procedure: January 11, 2021 Pre-op Diagnosis: Osteoarthritis Right knee Post-op diagnosis: same Post-op Findings: Tricompartmental osteoarthritis right knee Procedure Done: Right total knee arthroplasty Pathology: none sent Surgeon: Jasson Silvestre Anesthesia: Nerve Block (Spinal, adductor canal block) Estimated blood loss (mL): 150 Complications: None Findings: Degenerative joint disease with exposed subchondral bone and osteophytes predominantly in the patellofemoral and medial compartment more so than laterally Condition: stable Disposition: PACU Procedure: The patient was taken to the operating room. Patient was given 1 g of tranexamic acid . The above anesthesia provided by the anesthesia service. A timeout was performed. The patient was prepped and draped in the usual fashion with the lower extremity exposed. A anterior incision was made, midline, from a point proximal to the patella to the distal tibial tubercle. The knee was entered through a medial parapatellar approach. The patella could be displaced laterally and the knee flexed. The patellar fat pad was resected to provide better visibility. Retractors were placed medially and laterally adjacent to the tibial plateau. The femoral canal was drilled in line with the longitudinal axis of the femur. Intramedullary femoral guide for used to make a distal femoral cut in 5 degrees of valgus, resecting 8 mm from the more prominent condyle. Next the extra medullary tibial guide was placed in alignment with the longitudinal axis of the tibia. The cutting guides were set to remove just over 9 mm from the high tibial plateau. The proximal tibia was then cut. The femoral measuring guide was then placed over the distal femur. Rotation was verified checking the relationship of the guide to the condyle and the trochlear groove. There was some lateral condylar hypoplasia that merited additional external rotation of the component. The femur was measured and cut for the desired femoral component. This resulted in a flush anterior cut and a bit of prominence in the medial lateral dimension. It was felt that downsizing would result in femoral notching and the slight the desired tibial baseplate was then chosen. A trial reduction with the femur tibial baseplate and polyethylene was done, assuring that the knee was stable throughout full motion. Ligament balancing involved a release of the deep medial collateral ligament and resection of medial femoral and tibial osteophyte.The tibia was prepared for the tibial baseplate. Patellar thickness was then measured. The patella was cut removing articular cartilage and prepared for appropriate size patellar button. surfaces were cleaned with a gentamicin solution. The femur tibia and patella were then press-fit into place. The posterior capsule and collateral ligaments were then injected with a solution of 100 mL of 0.2% ropivacaine, 1 mL of a 1:1000 epinephrine solution, 30 mg of Toradol, and 1 g of tranexamic acid. final polyethylene component was then snapped into place into the tibia. The extensor retinaculum was closed with a running 1 Stratafix.. The subcutaneous tissues were closed with 2-0 Vicryl and the skin was closed with a running 4-0 Stratafix. The wound was covered with a Dermabond Prinio dressing. It was covered with 4xrs and a compressive Tubigauae was applied. The patient was taken to recovery room in stable condition. [employer] total knee arthroplasty components were used includin) Size 4 triathalon cruciate retaining femoral component 2) Size 3 Tritanium tibial component 3) 32 mm /10 mm thickness Tritanium asymetric patella 4) Size 3/9 mm thickness CR tibial bearing insert
--- NOTE | 2021-01-11 09:31 | ANES.PROC ---
Anesthesia Procedures Procedure/Date: 01/11/21 Nerve Block ^: Nerve Block 1: Main Anesthesia: spinal anesthesia block Time Out Performed: Yes Consent: requested by attending/covering physician, from patient, risks and benefits reviewed and patient agrees to proceed Nerve block location: adductor canal (right) Anesthesia monitors applied: pulse oximetry, EKG, BP cuff and oxygen Nerve block position: supine Anesthetic Used: ropivicaine 0.5% Amount of anesthesia used (mL): 20 Ultrasound used to: recognize landmarks Nerve Stimulator Used?: No Interscalene/Femoral BLK: 4 stimuplex 21 g needle used for position and inplane approach and visualize local anesthetic spread Injection: neg aspiration of heme Patient Tolerated Procedure: well Complications: none
--- NOTE | 2021-01-11 09:38 | SUR.PHASEI ---
PT AWAKE ALERT ON RA SINCE ARRIVAL PT ABLE TO MOVE BILAT THIGHS SPINAL LEVAL AT T-10 PER PT STATEMENT OF LOSS OF NORMAL SENSATION TO TOUCH, VSS IV PATENT RT KNEE DRESSING D/I FIRST ICE TO SITE RT DISTAL FOOT PINK WARM WITH STRONG REGULAR PULSE NOTED AND MARKED.
--- NOTE | 2021-01-11 09:47 | SUR.PHASEI ---
PT TAKING OCC ICE CHIPS, VSS PT SLEEPS IF NOT DISTURBED , WAITING TO GIVE REPORT TO FLOOR NURSE.
--- NOTE | 2021-01-11 10:10 | SUR.PHASEI ---
PT FAMILY NOTIFIED BY PHONE PT IS DOING WELL AND WE ARE HOLKING HER IN PACU WAITING FOR A ROOM. INFORMED PT FAMILY IT MAY BE 30 MINUTES OR SO BUT WE WILL KEEP THEM UPDATED.
[2021-01-11] MEDS: amlodipine 10 mg Tablet PO (11:36)
[2021-01-11] MEDS: CELEcoxib 200 mg Capsule PO ×2 (11:36→22:19)
[2021-01-11] MEDS: sodium chloride 0.9% 1,000 ML 100 ML IV (11:38)
[2021-01-11] MEDS: oxyCODONE 5 mg IR Tab/Cap PO (13:01)
[2021-01-11] MEDS: gabapentin 300 mg Capsule 600 MG PO ×2 (13:01→17:51)
--- NOTE | 2021-01-11 14:46 | ANE.PACU2 ---
Inpatient post-anesthesia follow up: Airway intact: Yes Vital signs: Temperature 97.5 F Pulse Rate 83 Respiratory Rate 18 Blood Pressure 133/88 Pulse Oximetry 98 Oxygen Delivery Me thod Nasal Cannula Oxygen Flow Rate 2 Fraction of Inspir ed Oxygen Hydration adequate: Yes Nausea and vomiting: No Mental status: Baseline
[2021-01-11] MEDS: morphine 4 mg/mL SDV 1 mL 2 MG IVP ×3 (18:06→22:21)
[2021-01-11] MEDS: TRAMadol 50 mg Tablet PO (22:20)
[2021-01-12] VITALS (8 sets, daily range): BP systolic 117–129; BP diastolic 80–81; PULSE 77–93; RESP 16–18; TEMP 36.5–36.6; O2SAT 92–93
[2021-01-12] MEDS: oxyCODONE 5 mg IR Tab/Cap PO ×3 (00:15→08:32)
[2021-01-12] MEDS: gabapentin 300 mg Capsule 600 MG PO ×2 (00:16→08:31)
[2021-01-12] MEDS: morphine 4 mg/mL SDV 1 mL 2 MG IVP ×3 (00:17→06:24)
[2021-01-12 02:24] LABS: Hemoglobin 13.6 g/dL (11.5-15.3)
[2021-01-12] MEDS: acetaminophen 500 mg Tablet 1000 MG PO ×2 (03:11→08:31)
[2021-01-12] MEDS: ondansetron 2 mg/ML SDV 2 mL 4 MG IVP (06:26)
--- NOTE | 2021-01-12 07:48 | P.DS_ITS ---
Discharge Providers Date of Admission: 01/11/21 09:42 Date of Discharge: January 12, 2021 Attending Provider at Admission: Jasson Silvestre MD Attending Provider at Discharge: Jasson Silvetsre MD Primary Care Provider: ISAURA Davis Diagnoses at Discharge Discharge Diagnosis (1) Status post right knee replacement: Status: Acute (2) Osteoarthritis of right knee: Status: Resolved Qualifiers: Osteoarthritis type: unspecified Qualified Code(s): M17.11 - Unilateral primary osteoarthritis, right knee Reason for Visit Reason for Visit: total knee arthoplasty Hospital Course Hospital Course The patient tolerated surgery well. They remained hemodynamically stable. They was begun on aspirin and foot pumps for DVT prophylaxis. The patient was mobilized with therapy beginning the day of surgery and by the first postoperative day independent with the walker. As the pain was adequately controlled and they were fully mobile they were discharged home. Physical Exam Narrative: EXAM NARRATIVE: On the day of discharge his knee incision was clean. They had no drainage. There is minimal swelling in the thigh and knee and the calf. No distal neurovascular deficits were noted Discharge Data Data Completed and Pending: Completed Studies During Hospitalization Category Date Time Status XR knee RT 1-2V 7 3560 Routine Exams 01/11/21 09:25 Completed Labs from last 24 hours 01/12/21 02:00 Hgb 13.6 Vitals: Last Vital Signs Temp 97.8 F 01/12/21 07:27 Pulse 77 01/12/21 07:27 Resp 16 01/12/21 07:27 BP 129/81 01/12/21 07:27 Pulse Ox 92 01/12/21 07:27 Discharge Plan Discharge Patient Disposition: Home Condition: Stable Prescriptions: New oxycodone 5 mg Tablet 5 mg PO Q4H PRN (Reason: Moderate Pain) 7 Days Qty: 40 RF: 0 aspirin 325 mg Tablet,Delayed Release (Dr/Ec) 325 mg PO DAILY 30 Days Qty: 30 RF: 0 celecoxib 200 mg Capsule 200 mg PO Q12H 14 Days Qty: 28 RF: 0 acetaminophen 500 mg Tablet 1,000 mg PO Q8H 14 Days Qty: 84 RF: 0 Continued amlodipine 10 mg tablet 10 mg PO Q24H 30 Days Qty: 30 RF: 2 tramadol 50 mg tablet 50 mg PO TID PRN (Reason: pain) Qty: 90 RF: 1 triamterene-hydrochlorothiazid 37.5-25 mg tablet 1 tab PO QAM Qty: 30 RF: 1 gabapentin 600 mg tablet 600 mg PO QID Qty: 120 RF: 2 Discontinued mupirocin 2 % ointment 1 applic topical BID Qty: 15 RF: 0 Discharge Orders: Discharge Order (Routine); Ordered 01/12/21 Ordered By: Jasson Silvestre Other Ambulatory Orders: DME: Walker (Order) Location: None Selected Ordered By: Jasson Silvestre Referrals: Jasson Silvestre MD [Physician] - 01/15/21 8:15 am Discharge Diet: Advance as tolerated Discharge Activity: Limit activity as instructed Patient Instructions: Opioid Safety Activity Restrictions/Additional Instructions: Okay to shower Keep Tubigauze sleeve in place for swelling. Okay to remove for hygiene. Apply FirstIce up to 20 min/hr for pain and swelling Take Celebrex twice a day for the next 15 days for pain , discontinue other anti-inflammatories Take Tylenol 500mg (1-2 tabs) as needed 3 times a day for mild pain take oxycodone for breakthrough pain. Exercises per physical therapy. May weight-bear as tolerated on total knee arthroplasty Discharge Attestations Time Spent in Discharge Care*: other Quality Metrics Clinical Quality Measures During this hospital stay, did patient experience: None Coding Level of Care Code Acute [facility] note Diagnoses Status post right knee replacement Z96.651 Osteoarthritis of right knee M17.11 Osteoarthritis type: unspecified
[2021-01-12] MEDS: aspirin 325 mg EC Tablet PO (08:32)
[2021-01-12] MEDS: CELEcoxib 200 mg Capsule PO (08:32)
[2021-01-12] MEDS: amlodipine 10 mg Tablet PO (08:33)
== END 2021-01-12 10:00 | disposition home or self-care (01) ==
LOC: MEDSURG 09:43
PROVIDERS: Admitting Provider Orthopaedic Surgery; PCP Nurse Practitioner Family; Visit Provider Orthopaedic Surgery
PROC: (CPT 27447; principal; 2021-01-11 07:00)
DX: M17.11 Unilateral primary osteoarthritis, right knee (principal); M23.306 Other meniscus derangements, unspecified meniscus, right knee; J44.9 Chronic obstructive pulmonary disease, unspecified; I10 Essential (primary) hypertension; G62.9 Polyneuropathy, unspecified; F17.210 Nicotine dependence, cigarettes, uncomplicated
CPT/HCPCS: 27447; 36415; 64447; 73560; 76942; 80048; 85018; 97116; 97161; 97530; C1776; G0378; J0171; J0690; J1580; J1885; J2250; J2270; J2405; J2704; J2795; J7030

== ENCOUNTER 2021-01-19 06:00 | Outpatient (RCR) | payer BC, MEDICAID, SELFPAY | END 2021-01-26 23:59 | disposition home or self-care (01) | LOC: TPT 06:00 | PROVIDERS: PCP Nurse Practitioner Family; Referring Provider Orthopaedic Surgery; Visit Provider Orthopaedic Surgery | DX: Z96.651 Presence of right artificial knee joint (principal); M23.306 Other meniscus derangements, unspecified meniscus, right knee | CPT/HCPCS: 97110; 97163 ==

== ENCOUNTER → 2021-02-16 14:35 | Outpatient (BNVA) | payer BC, MEDICAID, SELFPAY | PROVIDERS: PCP Nurse Practitioner Family; Visit Provider Orthopaedic Surgery | DX: Z96.651 Presence of right artificial knee joint (principal); M17.12 Unilateral primary osteoarthritis, left knee | CPT/HCPCS: 73560; 73565 ==

== ENCOUNTER → 2021-05-05 11:32 | Outpatient (BNVA) | payer MEDICAID, SELFPAY | PROVIDERS: PCP Nurse Practitioner Family; Visit Provider Orthopaedic Surgery | DX: Z20.822 Contact with and (suspected) exposure to COVID-19 (principal); Z01.812 Encounter for preprocedural laboratory examination | CPT/HCPCS: 87635 ==

== ENCOUNTER 2021-05-10 09:17 | Observation (INO) | payer MEDICAID, SELFPAY ==
[2021-05-03 09:55] VITALS: BMI 36.4
[2021-05-03 10:32] LABS: Basophils # 0.1 10^3/uL (0.0-0.1); Basophils % 0.7 %; Eosinophils # 0.3 10^3/uL (0.0-0.8); Eosinophils % 3.7 %; Hematocrit 45.2 % (37.0-47.0); Hemoglobin 15.3 g/dL (11.5-15.3); Lymphocytes # 2.5 10^3/uL (0.8-4.8); Lymphocytes % 28.9 %; Mean Corpuscular HGB Conc 33.8 g/dL (30.0-36.0); Mean Corpuscular Hemoglobin 30.1 pg (28.0-34.0); Monocytes # 0.5 10^3/uL (0.2-0.9); Monocytes % 6.3 %; Neutrophils # 5.11 10^3/uL (1.8-7.7); Neutrophils % 60.2 %; Nucleated Red Blood Cells % 0 %; Platelet Count 269 10^3/cmm (130-400); Red Blood Count 5.08 10^6/uL (4.1-5.3); Red Cell Distribution Width 13.6 % (12.1-15.1); White Blood Count 8.5 10^3/uL (4.0-10.0)
[2021-05-03 10:44] LABS: Anion Gap 12.7 (5-19); Blood Urea Nitrogen 8 mg/dL (6-20); Calcium 9.5 mg/dL (8.5-10.5); Carbon Dioxide 31 mmol/L (22-29); Chloride 94 mmol/L (98-107); Glucose 116 mg/dL (65-115); Osmolality Calculated 279 mOsm/kg (285-295); Sodium 135 mmol/L (136-145)
--- NOTE | 2021-05-03 10:46 | ANES.PREANE2 ---
Pre-Anesthetic Assessment Height/Weight: Height 1.65 m Weight 99.337 kg Preop Diagnosis: Osteoarthritis Left knee Operation Date: 05/10/21 07:00 Proposed Procedures p Total Knee Arthroplasty m17.12/92164(Left) - Jasson Silvestre MD Familial anesthetic complications: None Was Beta Cailin taken within 24 hours: N/A Was Clonidine taken within 24 hours: N/A Social Alcohol (Hx of ETOH dependence ) and Tobacco No interest in permanent tobacco cessation at this time Exam alert, oriented x 3, clear to auscultation bilaterally and regular rate & rhythm Airway Submandibular: within normal limits Cervical ROM: within normal limits Mallampati: Class II Comments: Comments: False upper teeth, lower teeth very poor condition Pulmonary Chronic Obstructive Pulmonary Disease CV/HEM Hypertension MET < 4 None reported Hepatic None reported GI Gastroesophageal Reflux Disease Musc/skel Osteoarthritis/DJD Peripheral edema with pain and paresthesia in hands Neuropsych Neuropathy Anesthetic Plan ASA status: 3 Anesthesia: Anesthesia Evaluation and Regional (specify below) (Spinal with adductor canal block for post op pain control ) Risk of > 500 ml blood loss (7ml/kg in children): No Medications/Allergies Home Medications Medication Instructions Recorded Confirmed Last Taken Type amlodipine 10 mg tablet 10 mg PO Q24H 30 Days #30 tab 03/02/21 05/03/21 Unknown Rx gabapentin 600 mg tablet 600 mg PO QID #120 tab 03/02/21 05/03/21 Unknown Rx triamterene 37.5 1 tab PO QAM #30 tab 03/02/21 05/03/21 Unknown Rx mg-hydrochlorothiazide 25 mg tablet tramadol 50 mg tablet 50 mg PO TID PRN #60 tab 04/29/21 05/03/21 Unknown Rx Allergies Allergy/AdvReac Type Severity Reaction Status Date / Time No Known Allergies Allergy Verified 04/29/21 16:04 [facility] Anesthesia Medical History Alcohol dependence Degeneration of meniscus of right knee Essential hypertension Osteoarthritis of left knee Peripheral neuropathy Surgical History History of hysterectomy Family History Mother Brain cancer Father Diabetes Hypertension Social History Smoking and tobacco status: current every day smoker cigarettes Packs smoked per day: 1.5 Years cigarettes smoked: 30 Second hand smoke exposure: Yes Alcohol intake: former Caregiver/support person: Yes Lives independently: Yes Marital status: Single Current occupational status: unemployed History of recent travel: No Current gender identity: Female Special cristina needs: No Agree to transfusion: Yes Data Anesthesia : 05/03/21 10:20 05/03/21 10:20 Short CBC 05/03/21 Range/Units 10:20 WBC 8.5 (4.0-10.0) 10^3/uL Hgb 15.3 (11.5-15.3) g/dL Hct 45.2 (37.0-47.0) % MCV 89.0 (81-99) fl Plt Count 269 (130-400) 10^3/cmm Neut % (Auto) 60.2 % Neut # (Auto) 5.11 (1.8-7.7) 10^3/uL BMP 05/03/21 10:20 BUN 8 Calcium 9.5 Cardiac Studies: No Data to Display
[2021-05-03 10:51] LABS: Potassium 2.7 mmol/L (3.5-5.1)
--- NOTE | 2021-05-03 11:20 | PM.MISC ---
Miscellaneous Note Note: Patient had critical lab result of K 2.7. Attempted to call patient. No answer, voice mail left.
--- NOTE | 2021-05-03 11:37 | PM.MISC ---
Miscellaneous Note Note: Attempted to contact patient. Phone number listed was patient's daughter who I spoke with. Patient's daughter Yarelis gave me her mother's phone number. I called this number and there was no answer and no voicemail option available.
[2021-05-10] VITALS (23 sets, daily range): BP systolic 97–140; BP diastolic 63–94; PULSE 97–132; RESP 16–24; TEMP 36.6–37.2; O2SAT 90–98
[2021-05-10] MEDS: oxyCODONE 20 mg ER (12 HR) Tablet PO (05:46)
[2021-05-10] MEDS: CELEcoxib 200 mg Capsule 400 MG PO (05:46)
[2021-05-10] MEDS: acetaminophen 500 mg Tablet 1000 MG PO ×3 (05:47→17:16)
[2021-05-10] MEDS: gabapentin 300 mg Capsule PO (05:47)
[2021-05-10] MEDS: sodium chloride 0.9% 1,000 ML 30 ML IV (06:24)
[2021-05-10 06:46] LABS: Anion Gap 17.1 (5-19); Blood Urea Nitrogen 12 mg/dL (6-20); Calcium 9.5 mg/dL (8.5-10.5); Carbon Dioxide 29 mmol/L (22-29); Chloride 91 mmol/L (98-107); Glomerular Filtration Rate 135.3 mL/min (90-130); Glucose 191 mg/dL (65-115); Osmolality Calculated 283 mOsm/kg (285-295); Potassium 3.1 mmol/L (3.5-5.1); Sodium 134 mmol/L (136-145)
--- NOTE | 2021-05-10 07:11 | P.ANESUD_ITS ---
Pre-Anesthetic Update Pre-Anesthetic Assessment: Date of Surgery/Procedure: 05/10/21 Preop Georgie gnosis: Osteoarthritis Left knee Proposed Procedure: Operation Date: 05/10/21 07:00 Proposed Procedures p Total Knee Arthroplasty m17.12/34970(Left) - Jasson Silvestre MD Changes from Pre-Anesthetic Assessment: Potassium improved Last Intake: Intake Last Liquid Date 05/09/21 Last Liquid Time 23:00 Last Solid Date 05/09/21 Last Solid Time 16:30 Labs Last 48hrs: BMP 05/10/21 06:20 Sodium 134 L Potassium 3.1 L Chloride 91 L Carbon Dioxide 29 BUN 12 Creatinine 0.5 Glucose 191 H Calcium 9.5 Vitals: Temperature 98.3 F 05/10/21 05:40 Temperature Source Temporal Artery S can 05/10/21 05:40 Pulse Rate 132 H 05/10/21 05:40 Respiratory Rate 20 H 05/10/21 05:40 Blood Pressure 130/94 05/10/21 05:40 Blood Pressure Lauren n 106 05/10/21 05:40 Pulse Oximetry 95 05/10/21 05:40 Oxygen Delivery Me thod 05/10/21 05:48 Exam: Pre-Anes Outpt Exam: alert, oriented x 3, clear to auscultation bilaterally and regular rate & rhythm Cardiac Studies: No Data to Display
--- NOTE | 2021-05-10 07:18 | P.HP_ITS ---
Same Day Surgery H&P Indication for Procedure/HPI DATE OF PROCEDURE: May 10, 2021 CHIEF COMPLAINT/INDICATIONFOR SURGICAL PROCEDURE: Osteoarthritis left knee here for left total knee arthroplasty PREOP DIAGNOSIS: Osteoarthritis Left knee PLANNED PROCEDURE: Operation Date: 05/10/21 07:00 Proposed Procedures p Total Knee Arthroplasty m17.12/95752(Left) - aJsson Silvestre MD Patient with history of right total knee arthroplasty and now ongoing left knee pain bending her ability to progress with activity. With radiographs showing severe degenerative changes. Here for elective left total knee arthroplasty Medications/Allergies* Allergies/Adverse Reactions Allergy/AdvReac Type Severity Reaction Status Date / Time adhesive tape Allergy ALGY-Bliste Verified 05/10/21 05:37 r Current Medications: Generic Name Dose Route Start Last Admin Trade Name Freq PRN Reason Stop Dose Admin Sodium Chloride 1,000 mls @ 30 mls/hr 05/10/21 05:45 05/10/21 06:24 Sodium Chloride 0.9% IV 05/11/21 05:44 30 mls/hr .Q24H SHYAM Administration Pertinent History/Comorbid Conditions* Medical History (Updated 04/29/21 @ 17:17 by Miranda Brown MD) Alcohol dependence Degeneration of meniscus of right knee Essential hypertension Osteoarthritis of left knee Peripheral neuropathy Surgical History (Updated 01/12/21 @ 07:47 by Jasson Silvestre MD) History of hysterectomy Family History (Updated 10/18/20 @ 16:26 by Sp Cruz MD) Brain cancer Mother Diabetes Father Hypertension Father Social History Smoking and tobacco status: current every day smoker cigarettes Packs smoked per day: 1.5 Years cigarettes smoked: 30 Second hand smoke exposure: Yes Alcohol intake: former Caregiver/support person: Yes Lives independently: Yes Marital status: Single Current occupational status: unemployed History of recent travel: No Current gender identity: Female Special cristina needs: No Agree to transfusion: Yes Pertinent Exam Findings alert, oriented x 3, clear to auscultation bilaterally and regular rate & rhythm Recommendations Surgery/Procedure today Coding Level of Care Code Acute [employer]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
[2021-05-10] MEDS: tranexamic acid 1,000 mg/10mL SDV 1000 MG IV (07:40)
--- NOTE | 2021-05-10 07:54 | ANES.PROC ---
Anesthesia Procedures Procedure/Date: 05/10/21 Nerve Block ^: Nerve Block 1: Main Anesthesia: spinal anesthesia block Time Out Performed: Yes Consent: requested by attending/covering physician, from patient, risks and benefits reviewed and patient agrees to proceed Nerve block location: adductor canal (L) Anesthesia monitors applied: pulse oximetry, EKG, BP cuff and oxygen Nerve block position: supine Anesthetic Used: ropivicaine 0.5% (30 ml) and with decadron (4 mg) Ultrasound used to: recognize landmarks Nerve Stimulator Used?: No Interscalene/Femoral BLK: 4 stimuplex 21 g needle used for position and inplane approach, visualize local anesthetic spread and no vascular puncture identified Injection: neg aspiration of heme Patient Tolerated Procedure: well and no complications Complications: none
[2021-05-10] MEDS: EPINEPHrine 1 mg/mL INJ XX (07:56)
[2021-05-10] MEDS: ketorolac 30 mg/mL INJ XX (07:57)
[2021-05-10] MEDS: sodium chloride 0.9% 100 mL Bag XX (07:58)
[2021-05-10] MEDS: tranexamic acid 1,000 mg/10mL SDV 1000 MG XX (07:58)
--- NOTE | 2021-05-10 09:16 | XR_ITS ---
WS: [id number] Left knee, AP and lateral, 05/10/2021 Clinical Data: Left Total knee arthroplasty Comparison: AP left knee knee, 02/16/2021. Findings: There is a total left knee arthroplasty in good position. No loosening is seen. No fractures or dislocations are seen. There is air within the left knee joint as a result of recent surgery. XR/XR knee LT 1-2V 08800 Impression: Left knee arthroplasty
--- NOTE | 2021-05-10 09:17 | PM.OP ---
Operative Report Date of procedure: May 10, 2021 Pre-op diagnosis: Preop Diagnosis Osteoarthritis Left knee Post-op diagnosis: same Post-op diagnosis: Same Post-op findings: Same Procedure done: Left total knee arthroplasty Implants: [place] total knee arthroplasty components were used includin) Size 4triathalon cruciate retaining femoral component 2) Size 3 Tritanium tibial component 3) 32 mm /10 mm thickness Tritanium asymetric patella 4) Size 3/9 mm thickness CR tibial bearing insert Pathology: none sent Surgeon: Jasson Silvestre Anesthesia: Nerve Block (Spinal, adductor canal block) Estimated blood loss (mL): 200 Findings: Patient had severe tricompartmental degenerative disease with slight varus alignment Condition: stable Disposition: PACU Procedure: The patient was taken to the operating room. Patient was given 1 g of tranexamic acid . The above anesthesia provided by the anesthesia service. A timeout was performed. The patient was prepped and draped in the usual fashion with the lower extremity exposed. A anterior incision was made, midline, from a point proximal to the patella to the distal tibial tubercle. The knee was entered through a medial parapatellar approach. The patella could be displaced laterally and the knee flexed. The patellar fat pad was resected to provide better visibility. Retractors were placed medially and laterally adjacent to the tibial plateau. The femoral canal was drilled in line with the longitudinal axis of the femur. Intramedullary femoral guide for used to make a distal femoral cut in 5 degrees of valgus, resecting 8 mm from the more prominent condyle. Next the extra medullary tibial guide was placed in alignment with the longitudinal axis of the tibia. The cutting guides were set to remove just over 9 mm from the high tibial plateau. The proximal tibia was then cut. The femoral measuring guide was then placed over the distal femur. Rotation was verified checking the relationship of the guide to the condyle and the trochlear groove. The femur was measured and cut for the desired femoral component. The desired tibial baseplate was then chosen. A trial reduction with the femur tibial baseplate and polyethylene was done, assuring that the knee was stable throughout full motion. Ligament balancing nothing more than a release of the deep medial collateral ligament and removal of medial osteophytes.The tibia was prepared for the tibial baseplate. Patellar thickness was then measured. The patella was cut removing articular cartilage and prepared for appropriate size patellar button. surfaces were cleaned with a gentamicin solution. The femur tibia and patella were then [] into place. The posterior capsule and collateral ligaments were then injected with a solution of 100 mL of 0.2% ropivacaine, 1 mL of a 1:1000 epinephrine solution, 30 mg of Toradol, and 1 g of tranexamic acid. Final polyethylene component was then snapped into place into the tibia. The extensor retinaculum was closed with a running 1 Stratafix interrupted 1 Ethibond. The subcutaneous tissues were closed with 2-0 Vicryl and the skin was closed with a running 4-0 Stratafix. The wound was covered with a Dermabond Prineo dressing. It was covered with 4xrs and a compressive Tubigauze was applied. The patient was taken to recovery room in stable condition.
[2021-05-10] MEDS: amlodipine 10 mg Tablet PO (10:37)
[2021-05-10] MEDS: CELEcoxib 200 mg Capsule PO ×2 (10:37→21:16)
[2021-05-10] MEDS: oxyCODONE 5 mg IR Tab/Cap PO ×3 (10:37→18:53)
[2021-05-10] MEDS: sodium chloride 0.9% 1,000 ML 100 ML IV ×2 (10:38→21:16)
[2021-05-10] MEDS: gabapentin 300 mg Capsule 600 MG PO ×3 (12:15→21:16)
--- NOTE | 2021-05-10 13:45 | ANE.PACU2 ---
Inpatient post-anesthesia follow up: Airway intact: Yes Vital signs: Temperature 98.6 F Pulse Rate 113 Respiratory Rate 18 Blood Pressure 100/67 Pulse Oximetry 95 Oxygen Delivery Me thod Room Air Oxygen Flow Rate 3 Fraction of Inspir ed Oxygen Hydration adequate: Yes Nausea and vomiting: No Pain level: 2 Mental status: Baseline
[2021-05-10] MEDS: nicotine 21 mg Patch 1 PATCH TRANSDERMA (15:07)
[2021-05-10] MEDS: morphine 4 mg/mL SDV 1 mL 2 MG IVP ×2 (16:24→20:13)
[2021-05-10] MEDS: TRAMadol 50 mg Tablet PO (17:16)
--- NOTE | 2021-05-10 19:08 | PC.NURSE ---
i reported high pulse 109 to nurse
[2021-05-10] MEDS: oxyCODONE 5 mg IR Tab/Cap 10 MG PO (23:04)
[2021-05-11] VITALS (7 sets, daily range): BP systolic 124–136; BP diastolic 80–88; PULSE 87–88; RESP 16–22; TEMP 36.6–36.7; O2SAT 97–98
[2021-05-11] MEDS: morphine 4 mg/mL SDV 1 mL 2 MG IVP ×2 (00:19→06:03)
[2021-05-11] MEDS: TRAMadol 50 mg Tablet PO ×2 (00:59→08:22)
[2021-05-11] MEDS: acetaminophen 500 mg Tablet 1000 MG PO ×2 (01:00→08:23)
--- NOTE | 2021-05-11 02:08 | PC.NURSE ---
Pain control has no been controlled. Patient keeps bending leg in bed and trying to put blankets/pillows under knee. Nurse educated patient to not do this and to keep leg straight. Patient has not kept ice on knee either. Patient is very anxious and told this nurse she has no pain tolerance.
[2021-05-11] MEDS: oxyCODONE 5 mg IR Tab/Cap 10 MG PO ×2 (03:25→09:43)
[2021-05-11 05:48] LABS: Hemoglobin 12.9 g/dL (11.5-15.3)
--- NOTE | 2021-05-11 06:00 | PC.NURSE ---
Individual pill in patient's bed: Pt got up to use the bedside commode and a white pill dropped on the floor. Pt stated it was either her Gabapentin of her blood pressure medication. Pill identifier showed it was Gabapentin.
[2021-05-11] MEDS: sodium chloride 0.9% 1,000 ML 100 ML IV (06:03)
--- NOTE | 2021-05-11 08:07 | PM.PN ---
Subjective Subjective: Filomena is anxious about a number of things. She states her mother is in the hospital. She states she is worried about her right hip. She continues to complain of pain in the left knee. Vitals/I&O/Wt Last Vital Signs Temp 98.0 F 05/11/21 07:26 Pulse 88 05/11/21 07:26 Resp 16 05/11/21 07:26 BP 124/80 05/11/21 07:26 Pulse Ox 98 05/11/21 07:26 05/10/21 05/11/21 05/11/21 22:59 06:59 14:59 Intake Total 1420 / 2960 1160 / 4120 Output Total 720 / 820 700 / 1520 Balance 700 / 2140 460 / 2600 Physical Exam Narrative: Slight bloody staining left knee dressing. Typical swelling. Data : 05/11/21 05:42 05/10/21 06:20 A&P Assessment and plan (1) Osteoarthritis of left knee: Status: Resolved Qualifiers: Osteoarthritis type: unspecified Qualified Code(s): M17.12 - Unilateral primary osteoarthritis, left knee (2) Status post right knee replacement: Knee appearance is not atypical to explain her pain. There seems to be a high component of anxiety. She has taken Xanax in the past. I will add Ativan. We will continue with therapy. Likely discharge this afternoon. Status: Acute Attestations Medical Necessity Statement*: Discharge home once pain controlled Coding Level of Care Code Acute Senior Sales Consultant for Stacy Fry Diagnoses Osteoarthritis of left knee M17.12 Osteoarthritis type: unspecified Status post right knee replacement Z96.651
[2021-05-11] MEDS: CELEcoxib 200 mg Capsule PO (08:22)
[2021-05-11] MEDS: gabapentin 300 mg Capsule 600 MG PO (08:22)
[2021-05-11] MEDS: aspirin 325 mg EC Tablet PO (08:23)
[2021-05-11] MEDS: amlodipine 10 mg Tablet PO (08:23)
[2021-05-11] MEDS: nicotine 21 mg Patch 1 PATCH TRANSDERMA (08:23)
[2021-05-11] MEDS: LORazepam 0.5 mg Tablet PO (08:31)
--- NOTE | 2021-05-11 09:04 | PC.CHAP ---
Pastoral Care Encounter/Spiritual Assessment Type of Contact [] Declined personal property assessor visit [] Patient/Family/Request visit [] Outpatient visit [] Follow-up visit [] Physician referral [] Code/Alert [x] Routine visit [] Staff referral [] Actively dying [] Patient sleeping [] Family support [] [] Out of room [] Palliative care [] [] Receiving care in room [] Pre-surgical visit [] Trauma [] Long length of stay [] ICU visit [] Other: Relational/Emotional Strength [x] Patient feels connected with others/family/visitors/staff [] Distress [] Loneliness/isolation [] Abandonment Spirituality of Patient [x] Person of Kylie [x] Attends Adventism of their Kylie [x] Believes in Prayer [] Reads Bible or Yazdanism materials [] There are Spiritual issues to be addressed Indian Nanny Interventions [x] Prayer [x] Active listening [x] Non-anxious presence [x] Spiritual/emotional support [] Crisis/trauma care [] Spiritual counseling [] Bereavement support [] Provided bereavement packet [] Provided Bible/devotional materials [] Provided toy/stuffed animal, coloring book to patient or family member [] Provided Communion [] Anointing/[place] [] Salvation [x] Completed spiritual assessment [] Other: Impact on Illness or Injury [] Angry [] Fearful [] Anxious [] Often cries [] Exhaustion [] Unable to work [] Unable to attend mormon [] Unable to walk/stand [] Unable to read [] Unable to drive [] Unable to eat/drink [] Unable to sleep [] Unable to be with family [] Patient intubated [] Other: Summary Pt had knee replacement and reports she is healing well. Expecting to go home today. She has one daughter but no grandchildren. Pt grew up in jain home and Pt still attends services on a regular basis. Right now she resides in [place] but travels to [facility] to attend a mandaeism there. She really likes the people in the mandaeism which is why she travels the distance. Time spent with patient 10 m
--- NOTE | 2021-05-11 09:58 | PM.DCS ---
Discharge Providers Date of Admission: 05/10/21 09:17 Date of Discharge: May 11, 2021 Attending Provider at Admission: Jasson Silvestre MD Attending Provider at Discharge: Jasson Silvestre MD Primary Care Provider: ISAURA Davis Diagnoses at Discharge Discharge Diagnosis (1) Osteoarthritis of left knee: Status: Resolved Qualifiers: Osteoarthritis type: unspecified Qualified Code(s): M17.12 - Unilateral primary osteoarthritis, left knee (2) Status post right knee replacement: Status: Acute Reason for Visit Reason for Visit: osteoarthritis of left knee Hospital Course Hospital Course The patient tolerated surgery well. They remained hemodynamically stable. They was begun on aspirin and foot pumps for DVT prophylaxis. The patient was mobilized with therapy beginning the day of surgery and by the first postoperative day independent with the walker. As the pain was adequately controlled and they were fully mobile they were discharged home. Physical Exam Narrative: On the day of discharge the knee incision was clean with minimal bloody drainage. There is minimal swelling in the thigh and knee and the calf. No distal neurovascular deficits were noted Discharge Data Studies Completed and Pending Completed Studies During Hospitalization Category Date Time Status XR knee LT 1-2V [id number] Routine Exams 05/10/21 09:16 Completed Radiology Impressions Knee X-Ray 05/10/21 09:16 Impression: Left knee arthroplasty Laboratory Results WBC 8.5 10^3/uL (4.0-10.0) 05/03/21 10:20 RBC 5.08 10^6/uL (4.1-5.3) 05/03/21 10:20 Hgb 12.9 g/dL (11.5-15.3) 05/11/21 05:42 Hct 45.2 % (37.0-47.0) 05/03/21 10:20 MCV 89.0 fl (81-99) 05/03/21 10:20 MCH 30.1 pg (28.0-34.0) 05/03/21 10:20 MCHC 33.8 g/dL (30.0-36.0) 05/03/21 10:20 RDW 13.6 % (12.1-15.1) 05/03/21 10:20 Plt Count 269 10^3/cmm (130-400) 05/03/21 10:20 MPV 11.0 fL (7.4-10.4) H 05/03/21 10:20 Neut % (Auto) 60.2 % 05/03/21 10:20 Lymph % (Auto) 28.9 % 05/03/21 10:20 [place] % (Auto) 6.3 % 05/03/21 10:20 Eos % (Auto) 3.7 % 05/03/21 10:20 Baso % (Auto) 0.7 % 05/03/21 10:20 Neut # (Auto) 5.11 10^3/uL (1.8-7.7) 05/03/21 10:20 Lymph # (Auto) 2.5 10^3/uL (0.8-4.8) 05/03/21 10:20 [place] # (Auto) 0.5 10^3/uL (0.2-0.9) 05/03/21 10:20 Eos # (Auto) 0.3 10^3/uL (0.0-0.8) 05/03/21 10:20 Baso # (Auto) 0.1 10^3/uL (0.0-0.1) 05/03/21 10:20 Nucleated RBC % (auto) 0 % 05/03/21 10:20 Nucleated RBCs # 0.0 /100WBC 05/03/21 10:20 Sodium 134 mmol/L (136-145) L 05/10/21 06:20 Potassium 3.1 mmol/L (3.5-5.1) L 05/10/21 06:20 Chloride 91 mmol/L (98-107) L 05/10/21 06:20 Carbon Dioxide 29 mmol/L (22-29) 05/10/21 06:20 Anion Gap 17.1 (5-19) 05/10/21 06:20 BUN 12 mg/dL (6-20) 05/10/21 06:20 Creatinine 0.5 mg/dL (0.5-0.9) 05/10/21 06:20 GFR Calculation 135.3 mL/min (90-130) H 05/10/21 06:20 Glucose 191 mg/dL (65-115) H 05/10/21 06:20 Calculated Osmolality 283 mOsm/kg (285-295) L 05/10/21 06:20 Calcium 9.5 mg/dL (8.5-10.5) 05/10/21 06:20 Vitals Last Vital Signs Temp 98.0 F 05/11/21 07:26 Pulse 88 05/11/21 07:26 Resp 18 05/11/21 09:43 BP 124/80 05/11/21 07:26 Pulse Ox 97 05/11/21 09:43 Discharge Plan Discharge Patient Disposition: Home Condition: Stable Prescriptions: New lorazepam 0.5 mg Tablet 0.5 mg PO TID PRN (Reason: Anxiety) Qty: 15 0RF oxycodone 5 mg Tablet 10 mg PO Q4H PRN (Reason: Severe Pain) 7 Days Qty: 40 0RF acetaminophen 500 mg Tablet 1,000 mg PO Q8H 14 Days Qty: 84 0RF aspirin 325 mg Tablet,Delayed Release (Dr/Ec) 325 mg PO DAILY 30 Days 0RF celecoxib 200 mg Capsule 200 mg PO Q12H 14 Days Qty: 28 0RF Continued triamterene-hydrochlorothiazid 37.5-25 mg tablet 1 tab PO QAM Qty: 30 5RF amlodipine 10 mg tablet 10 mg PO Q24H 30 Days Qty: 30 5RF gabapentin 600 mg tablet 600 mg PO QID Qty: 120 5RF tramadol 50 mg tablet 50 mg PO TID PRN (Reason: pain) Qty: 60 0RF Discharge Orders: Discharge Order (Routine); Ordered 05/11/21 Ordered By: Jasson Silvestre Other Ambulatory Orders: Physical Therapy Eval and Treat Outpatient (Order) Timeframe: 2 Weeks Facility: [facility] - Location: Physical Therapy Ordered By: Jasson Silvestre Referrals: Jasson Silvestre MD [Physician] - 05/14/21 8:00 am Discharge Diet: Advance as tolerated Discharge Activity: Limit activity as instructed Patient Instructions: Opioid Safety Activity Restrictions/Additional Instructions: You will receive a call from outpatient rehab for your therapy appointment. If you do not get a call within two days of discharge, please call them at [phone]. [phone]. Okay to shower Keep Tubigauze sleeve in place for swelling. Okay to remove for hygiene. Apply FirstIce up to 20 min/hr for pain and swelling Take Celebrex twice a day for the next 15 days for pain , discontinue other anti-inflammatories Take Tylenol 500mg (2 tabs) as needed 3 times a day for mild pain take oxycodone for breakthrough pain. Take Ativan as needed for anxiety May weight-bear as tolerated on total knee arthroplasty IF HAVE ANY PROBLEMS OR QUESTIONS CALL HOSPITAL SPORTS PHYSICIAN AT AND ASK TO HAVE DR. ARLYN WOLFE. Discharge Attestations Time Spent in Discharge Care*: other Quality Metrics Clinical Quality Measures [ No reported AMI, CVA or VTE this stay] Coding Level of Care Code Acute [facility] note Diagnoses Osteoarthritis of left knee M17.12 Osteoarthritis type: unspecified Status post right knee replacement Z96.651
--- NOTE | 2021-05-11 10:26 | PC.NURSE ---
Discharge education and teaching given to patient, all questions were answered at this time. MD Silvestre changed dressing this AM. IV discontinued. All belongings were accounted for. Vitals stable. Medications were sent to patients preferred pharmacy.
== END 2021-05-11 10:54 | disposition home or self-care (01) ==
LOC: MEDSURG 09:18
PROVIDERS: Anesthesiology; Admitting Provider Orthopaedic Surgery; PCP Nurse Practitioner Family; Visit Provider Orthopaedic Surgery
PROC: (CPT 27447; principal; 2021-05-10 07:00)
DX: M17.12 Unilateral primary osteoarthritis, left knee (principal); J44.9 Chronic obstructive pulmonary disease, unspecified; I10 Essential (primary) hypertension; K21.9 Gastro-esophageal reflux disease without esophagitis; F17.210 Nicotine dependence, cigarettes, uncomplicated
CPT/HCPCS: 27447; 36415; 64447; 73560; 76942; 80048; 85018; 85025; 97110; 97116; 97161; 97165; C1776; G0378; J0171; J0690; J1100; J1580; J1885; J2250; J2270; J2370; J2704; J2795; J3010; J3490; J7030

== ENCOUNTER → 2021-08-04 14:16 | Outpatient (BNVA) | payer MEDICAID, SELFPAY | PROVIDERS: PCP Nurse Practitioner Family; Visit Provider Orthopaedic Surgery | DX: Z96.652 Presence of left artificial knee joint (principal) | CPT/HCPCS: 73560; 73565 ==

== ENCOUNTER → 2022-04-26 11:09 | Outpatient (BNVA) | payer MEDICAID, SELFPAY | PROVIDERS: PCP Nurse Practitioner Family; Visit Provider Nurse Practitioner Family | DX: I10 Essential (primary) hypertension (principal); M79.89 Other specified soft tissue disorders; M85.80 Other specified disorders of bone density and structure, unspecified site; M85.60 Other cyst of bone, unspecified site | CPT/HCPCS: 80053; 80061; 84443; 85025 ==

== ENCOUNTER → 2022-04-26 11:38 | Outpatient (BNVA) | payer MEDICAID, SELFPAY | PROVIDERS: PCP Nurse Practitioner Family; Visit Provider Nurse Practitioner Family | DX: I10 Essential (primary) hypertension (principal); M79.89 Other specified soft tissue disorders | CPT/HCPCS: 73130 ==

== ENCOUNTER 2022-04-29 10:20 | Outpatient (CLI) | payer MEDICAID, SELFPAY ==
--- NOTE | 2022-04-29 10:15 | USCV_ITS ---
Filomena Hernandez Age: 41 Gender: F : 1980 Exam Date: 04/29/2022 10:48 Ordering Phys: Diane Landon FUDGER-Jude Technologist: Exam Location: [facility] Indication: rt leg swelling PROCEDURES: Venous duplex imaging was performed in only the right lower extremity. The following venous structures were evaluated: common femoral vein, profunda vein, proximal portion of the greater saphenous vein, superficial femoral vein, and the popliteal vein. In addition, the posterior tibial and peroneal trunk were evaluated. FINDINGS: Normal 2-D Doppler and augmentation and compressibility throughout the lower extremity venous structures. Additional imaging through the proximal calf veins also reveals no thrombus. Limited evaluation of the greater saphenous vein is patent with no thrombus. CONCLUSIONS No DVT right lower extremity. Dr. Tamia Morton DO (Electronically Signed) Final Date: 29 April 2022 11:32 S
== END 2022-04-29 10:21 | disposition home or self-care (01) ==
PROVIDERS: PCP Nurse Practitioner Family; Visit Provider Nurse Practitioner Family
DX: M79.89 Other specified soft tissue disorders (principal)
CPT/HCPCS: 93971

== ENCOUNTER → 2023-10-19 14:33 | Outpatient (BNVA) | payer MEDICAID, SELFPAY | PROVIDERS: PCP Nurse Practitioner Family; Visit Provider Nurse Practitioner Family | DX: I10 Essential (primary) hypertension (principal) | CPT/HCPCS: 80053; 80061; 84443; 85025 ==

== ENCOUNTER → 2024-07-31 12:04 | Outpatient (BNVA) | payer MEDICAID, SELFPAY | PROVIDERS: PCP Nurse Practitioner Family; Visit Provider Nurse Practitioner | DX: I10 Essential (primary) hypertension (principal); R73.9 Hyperglycemia, unspecified | CPT/HCPCS: 80053; 80061; 81000; 81003; 82306; 82607; 83036; 84443 ==

== ENCOUNTER → 2024-09-30 09:12 | Outpatient (BNVA) | payer MEDICAID, SELFPAY | PROVIDERS: PCP Nurse Practitioner; Visit Provider Nurse Practitioner | DX: M16.11 Unilateral primary osteoarthritis, right hip (principal) | CPT/HCPCS: 73502 ==

== ENCOUNTER 2025-01-18 17:05 | Emergency (ER) | payer MEDICAID, SELFPAY ==
[2025-01-18 17:12] VITALS: BP 108/77; PULSE 74; RESP 17; TEMP 37.2; O2SAT 94; BMI 33.3
--- NOTE | 2025-01-18 17:14 | ECG_ITS ---
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 Measurements Intervals [place] Rate: 64 P: 63 VT: 168 QRS: 41 QRSD: 97 T: 42 QT: 387 QTc: 400 Interpretive Statements SINUS RHYTHM LOW QRS VOLTAGE IN PRECORDIAL LEADS [QRS DEFLECTION < 1.0 mV IN CHEST LEADS] Compared to ECG 10/19/2020 03:19:51 No significant changes Electronically Signed On 01-19-2025 17:27:05 SALES SYSTEMS ENGINEER by Broderick Cotton M.D. [email or web address]
--- NOTE | 2025-01-18 17:14 | XRR_ITS ---
PROCEDURE INFORMATION: Exam: XR Chest Exam date and time: 01/18/2025 5:24 PM Age: 44 years old Clinical indication: Pain; Chest pressure and left-sided; Additional info: Chest pain TECHNIQUE: Imaging protocol: Radiologic exam of the chest. Views: 1 view. COMPARISON: CR XR chest 1V [id number] 09/27/2018 9:48 AM FINDINGS: Lungs: Unremarkable. No consolidation. Pleural spaces: Unremarkable. No pleural effusion. No pneumothorax. Heart/Mediastinum: Unremarkable. No cardiomegaly. Bones/joints: Mild degenerative changes of the AC joints. XR/XR chest 1V portable [id number] IMPRESSION: No acute findings.
--- OUTSIDE RECORDS SUMMARY | 2025-01-18 17:15 | XMS_ITS | Clinical Summary ---
Author Organization [facility] Address [address] Michel: Epic Prelude ADT SURESH HERNANDEZ [address] Care Team Providers Care Architect Manager Name Role Phone Newton Lindquist MD Primary Care Provider [phone] Allergies No known active allergies Medications potassium chloride (KLOR-CON) 10 mEq Extended Release tabletIndications :Chronic alcoholic gastritis with hemorrhage TAKE TWO TABLETS BY MOUTH TWICE DAILY 120 Tablet 1 8 Active folic acid (FOLVITE) 1 mg tabletIndications :Alcohol-induced chronic pancreatitis (CMS/HCC) Take 1 Tablet (1 mg) by mouth daily. 90 Tablet 3 8 Active ondansetron (ZOFRAN) 4 mg TabletIndications :Alcohol-induced chronic pancreatitis (CMS/HCC),Chronic alcoholic gastritis with hemorrhage TAKE ONE TABLET BY MOUTH EVERY 8 HOURS NEEDED FOR NAUSEA / EMESIS. 10 Tablet 5 8 Active metoprolol tartrate (LOPRESSOR) 50 mg tabletIndications :LEI (generalized anxiety disorder),HTN (hypertension), benign Take 1 Tablet (50 mg) by mouth 2 times daily. 180 Tablet 3 8 Active venlafaxine (EFFEXOR XR) 150 mg Extended Release 24 hour capsuleIndication s:LEI (generalized anxiety disorder),Mild episode of recurrent major depressive disorder Take 1 Capsule (150 mg) by mouth daily. 90 Capsule 3 8 Active pantoprazole (PROTONIX) 40 mg Tablet, Delayed Release (E.C.)Indications :Chronic alcoholic gastritis with hemorrhage,Alcoho l-induced chronic pancreatitis (CMS/HCC) Take 1 Tablet (40 mg) by mouth daily. 90 Tablet 3 8 Active gabapentin (NEURONTIN) 600 mg tabletIndications :Fibromyalgia TAKE ONE TABLET BY MOUTH THREE TIMES DAILY 45 Tablet 0 9 Active clonazePAM (KlonoPIN) 0.5 mg TabletIndications :Mild episode of recurrent major depressive disorder,LEI (generalized anxiety disorder) TAKE ONE TABLET BY MOUTH DAILY NEEDED FOR ANXIETY 30 Tablet 0 8 Active multivitamins with minerals Capsule Take 1 Cap by mouth daily. 5 Active Active Problems Problem Noted Date Diagnosed Date Severe obesity (BMI 35.0-39.9) with comorbidity 07/07/2017 Mild episode of recurrent major depressive disor eve 04/10/2017 Chronic alcoholic gastritis with hemorrhage 03/30 Fibromyalgia 04/10/2017 Tobacco use 04/10/2017 H/O ETOH abuse 04/10/2017 Fatty liver 04/10/2017 HTN (hypertension), benign 04/10/2017 LEI (generalized anxiety disorder) 04/10/2017 Alcohol-induced chronic pancreatitis 04/10/2017 Resolved Problems Problem Noted Date Diagnosed Date Resolved Date Acquired hypothyroidism 04/10/201709/27 Social History Tobacco Use Types Packs/Day Years Used Date Smoking Tobacco: Every Day Cigarettes 1 30 Smokeless Tobacco: Never Tobacco Cessation:Ready to Q uit: Not Asked; Counseling Given: Not Answered Alcohol Use Standard Drinks/Week Comments No 0 (1 standard drink = 0.6 oz pur e alcohol) Feeling Safe Answer Date Recorded Are you in a relationship wi th someone who hurts you emotionally and/or physically? 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 Gender Identity Not on file Sexual Orientation Not on file Last Filed Vital Signs Vital Sign Reading Time Taken Comments Blood Pressure 145/95 02/23/2023 9:49 PM LOGISTICS PROGRAM MANAGER Pulse 117 02/23/2023 9:49 PM LOGISTICS PROGRAM MANAGER Temperature 37.1 C (98.7 F) 02/23/2023 9:49 PM LOGISTICS PROGRAM MANAGER Respiratory Rate 22 02/23/2023 9:49 PM LOGISTICS PROGRAM MANAGER Oxygen Saturation 98% 02/23/2023 9:49 PM LOGISTICS PROGRAM MANAGER Inhaled Oxygen Concentration - - Weight 108.5 kg (239 lb 3.2 oz) 02/23/2023 9:49 PM LOGISTICS PROGRAM MANAGER Height 160 cm (5' 3 ) 02/23/2023 9:49 PM LOGISTICS PROGRAM MANAGER Body Mass Index 42.37 02/23/2023 9:49 PM LOGISTICS PROGRAM MANAGER Plan of Treatment Health Maintenance Due Date Last Done Comments Pre-Diabetes and Diabetes Screening 1980 DTAP/TDAP/TD VACCINES (1 - Tdap) 1997 HEPATITIS B VACCINES (1 of 3 - 19+ 3-dose series) 1997 Preventative Visit-Managed Medicaid 1997 HPV/Cotest (21-29) 07/21/1999 CERVICAL CANCER SCREENING 2008 HPV/Cotest (30-65) 2008 PAP SMEAR 2008 BREAST CANCER SCREENING 2018 COLORECTAL SCREENING 07/21/2023 Colorectal Cancer Screening 07/21/2023 FIT-DNA Q 3 years 07/21/2023 FIT/FOBT Q 1 year 07/21/2023 Flex Sig/CT Colonography Q 5 years 07/21/2023 INFLUENZA VACCINE (#1) 2024 HPV VACCINES Aged Out No longer eligi ble based on patient's age to complete this topic Insurance [facility] [id number] Care Teams Architect Manager Relationship Specialty Start Date End Date Newton Lindquist MD [address] [place] [id number] PCP - General Family Practice 06/07/17
--- OUTSIDE RECORDS SUMMARY | 2025-01-18 17:15 | XMS_ITS | Clinical Summary ---
Author Organization [facility] Address [address] [place] [address] Phone Care Team Providers Care Librarian Assistant Name Role Phone Newton Lindquist MD Primary Care Provider [phone] Allergies No known active allergies Medications multivitamins with minerals Capsule Take 1 Cap by mouth daily. Active potassium chloride (KLOR-CON) 10 mEq Extended Release tabletIndications :Chronic alcoholic gastritis with hemorrhage TAKE TWO TABLETS BY MOUTH TWICE DAILY 120 Tablet 1 8 Active folic acid (FOLVITE) 1 mg tabletIndications :Alcohol-induced chronic pancreatitis (CMS/HCC) Take 1 Tablet (1 mg) by mouth daily. 90 Tablet 3 8 Active metoprolol tartrate (LOPRESSOR) 50 mg tabletIndications :HTN (hypertension), benign,LEI (generalized anxiety disorder) Take 1 Tablet (50 mg) by mouth 2 times daily. 180 Tablet 3 8 Active ondansetron (ZOFRAN) 4 mg TabletIndications :Alcohol-induced chronic pancreatitis (CMS/HCC),Chronic alcoholic gastritis with hemorrhage TAKE ONE TABLET BY MOUTH EVERY 8 HOURS NEEDED FOR NAUSEA / EMESIS. 10 Tablet 5 8 Active pantoprazole (PROTONIX) 40 mg Tablet, Delayed Release (E.C.)Indications :Chronic alcoholic gastritis with hemorrhage,Alcoho l-induced chronic pancreatitis (CMS/HCC) Take 1 Tablet (40 mg) by mouth daily. 90 Tablet 3 8 Active venlafaxine (EFFEXOR XR) 150 mg Extended Release 24 hour capsuleIndication s:Mild episode of recurrent major depressive disorder,LEI (generalized anxiety disorder) Take 1 Capsule (150 mg) by mouth daily. 90 Capsule 3 8 Active clonazePAM (KlonoPIN) 0.5 mg TabletIndications :Mild episode of recurrent major depressive disorder,LEI (generalized anxiety disorder) TAKE ONE TABLET BY MOUTH DAILY NEEDED FOR ANXIETY 30 Tablet 8 Active gabapentin (NEURONTIN) 600 mg tabletIndications :Fibromyalgia TAKE ONE TABLET BY MOUTH THREE TIMES DAILY 45 Tablet 9 Active Active Problems Problem Noted Date Diagnosed Date Severe obesity (BMI 35.0-39.9) with comorbidity 07/07/2017 HTN (hypertension), benign 04/10/2017 Tobacco use 04/10/2017 Mild episode of recurrent major depressive disor eve 04/10/2017 LEI (generalized anxiety disorder) 04/10/2017 Alcohol-induced chronic pancreatitis 04/10/2017 Chronic alcoholic gastritis with hemorrhage 03/30 H/O ETOH abuse 04/10/2017 Fibromyalgia 04/10/2017 Fatty liver 04/10/2017 Resolved Problems Problem Noted Date Diagnosed Date Resolved Date Acquired hypothyroidism 04/10/201709/27 Social History Tobacco Use Types Packs/Day Years Used Date Smoking Tobacco: Every Day Cigarettes 1 25 Smokeless Tobacco: Never Tobacco Cessation:Ready to Q uit: No; Counseling Given: No Alcohol Use Standard Drinks/Week Comments No 0 (1 standard drink = 0.6 oz pur e alcohol) Comments No Sex and Gender Information Value Date Recorded Sex Assigned at Not on file Legal Sex Female 3:55 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 Gender Identity Not on file Sexual Orientation Not on file Last Filed Vital Signs Vital Sign Reading Time Taken Comments Blood Pressure 148/96 11/28/2017 1:32 PM CDT Pulse 96 11/28/2017 1:32 PM CDT Temperature 36.9 C (98.4 F) 11/28/2017 1:32 PM CDT Respiratory Rate 16 11/28/2017 1:32 PM CDT Oxygen Saturation 98% 11/28/2017 1:32 PM CDT Inhaled Oxygen Concentration - - Weight 97.5 kg (215 lb) 11/28/2017 1:32 PM CDT Height 165.1 cm (5' 5 ) 11/28/2017 1:32 PM CDT Body Mass Index 35.78 11/28/2017 1:32 PM CDT Plan of Treatment Health Maintenance Due Date [...] patient's age to complete this topic Insurance [place]ICAID [place] Care Teams Librarian Assistant Relationship Specialty Start Date End Date Newton Lindquist MD [address] [place] [id number] PCP - General Family Practice 06/07/17
[2025-01-18 17:48] VITALS: BP 105/71; PULSE 81; RESP 18; O2SAT 95
[2025-01-18 17:56] LABS: Hematocrit 39.0 % (36-47); Hemoglobin 13.00 g/dL (11.27-16.99); Mean Corpuscular HGB Conc 33.3 g/dL (30-55); Mean Corpuscular Hemoglobin 30.5 pg (27-33); Mean Corpuscular Volume 91.5 fl (85-98); Nucleated Red Blood Cells % 0 %; Platelet Count 240 10^3/cmm (157-399); Red Blood Count 4.26 10^6/uL (3.85-5.65); White Blood Count 8.96 10^3/uL (3.29-11.43)
[2025-01-18 18:10] LABS: INR 0.93 (0.8-1.2); Partial Thromboplastin Time 26.6 SECONDS (23.9-36.7); Prothrombin Time 13.10 SECONDS (12.1-14.9)
[2025-01-18 18:18] LABS: Troponin(5th) Baseline < 6 ng/L (0-10)
[2025-01-18 18:27] LABS: Alanine Aminotransferase 8 U/L (0-33); Albumin Level 3.9 g/dL (3.5-5.2); Alkaline Phosphatase 86 U/L (35-105); Blood Urea Nitrogen 12 mg/dL (6-20); Calcium 9.0 mg/dL (8.5-10.5); Carbon Dioxide 26 mmol/L (22-29); Chloride 103 mmol/L (98-107); Globulin 2.6 g/dL (1.3-4.6); Glucose 88 mg/dL (65-115); Lipase 22 U/L (13-60); NT Pro B Type Natriuretic Pept < 36 pg/mL (0-125); Osmolality Calculated 285 mOsm/kg (285-295); Sodium 138 mmol/L (136-145); Total Protein 6.5 g/dL (6.6-8.7)
[2025-01-18 18:30] LABS: Anion Gap 13.4 (5-19); Aspartate Amino Transferase 13 U/L (0-32); Potassium 4.4 mmol/L (3.5-5.1)
[2025-01-18 18:36] VITALS: BP 99/68; PULSE 75; RESP 16; O2SAT 95
--- NOTE | 2025-01-18 18:37 | CTR_ITS ---
PROCEDURE INFORMATION: Exam: CTA Chest With Contrast Exam date and time: 01/18/2025 6:50 PM Age: 44 years old Clinical indication: Left-sided; C/O left sided chest pain; Additional info: Cp with radiation to lue, subjective L sided facial numb TECHNIQUE: Imaging protocol: Computed tomographic angiography of the chest with contrast. Exam focused on the arteries. 3D rendering (Not supervised by radiologist): MIP and/or 3D reconstructed images were created by the technologist. Radiation optimization: All CT scans at this facility use at least one of these dose optimization techniques: automated exposure control; mA and/or kV adjustment per patient size (includes targeted exams where dose is matched to clinical indication); or iterative reconstruction. Contrast material: OMNI 350; Contrast volume: 76 ml; Contrast route: INTRAVENOUS (IV); COMPARISON: CR (CHEST, ) 01/18/2025 5:24 PM RADIATION DOSE METRICS: Total DLP (mGy-cm): 544.62 FINDINGS: Pulmonary arteries: Normal. No pulmonary emboli. Aorta: Mild calcific plaque involves the coronary arteries. No aortic aneurysm. No aortic dissection. Lungs: Unremarkable. No consolidation. No masses. There is a 4 mm noncalcified pulmonary nodule in the right lower lobe (series 7, image 202). Pleural spaces: Unremarkable. No pneumothorax. No pleural effusion. Heart: Unremarkable. No cardiomegaly. No pericardial effusion. Lymph nodes: Prominent mediastinal and axillary lymph nodes likely reactive. Gallbladder and biliary ducts: Incompletely imaged gallstones. Bones/joints: Unremarkable. No acute fracture. Soft tissues: Unremarkable. CT/CT angio chest PE protcl [id number] IMPRESSION: 1. No acute findings. 2. Mildly prominent mediastinal lymph nodes likely reactive. 3. Tiny right lower lobe pulmonary nodule. For patients at low risk (minimal or absent history of smoking and of other known risk factors), no routine follow-up is indicated. For patients at high risk (history of smoking or of other known risk factors), consider optional CT Chest at 12 months. (Reference: Kellie) REFERENCES: Kellie Alvarez et al. Guidelines for Management of Incidental Pulmonary Nodules Detected on CT Images: From the Fleischner Society 2017. Radiology. 2017;284(1):228-243.
--- NOTE | 2025-01-18 18:37 | CTR_ITS ---
PROCEDURE INFORMATION: Exam: CTA Head With Contrast, Arteriography Exam date and time: 01/18/2025 6:45 PM Age: 44 years old Clinical indication: C/O left facial numbness; Additional info: Cp with radiation to lue, subjective L sided facial numb TECHNIQUE: Imaging protocol: Computed tomographic angiography of the head with contrast. Exam focused on the arteries. 3D rendering (Not supervised by radiologist): MIP and/or 3D reconstructed images were created by the technologist. Radiation optimization: All CT scans at this facility use at least one of these dose optimization techniques: automated exposure control; mA and/or kV adjustment per patient size (includes targeted exams where dose is matched to clinical indication); or iterative reconstruction. Contrast material: OMNI 350; Contrast volume: 80 ml; Contrast route: INTRAVENOUS (IV); COMPARISON: No relevant prior studies available. RADIATION DOSE METRICS: Total DLP (mGy-cm): 1064.82 FINDINGS: ANTERIOR CIRCULATION: Right internal carotid artery: Intracranial segment is patent with no significant stenosis. No aneurysm. Right middle cerebral artery: No occlusion or significant stenosis. No aneurysm. Right anterior cerebral artery: No occlusion or significant stenosis. No aneurysm. Left internal carotid artery: Intracranial segment is patent with no significant stenosis. No aneurysm. Left middle cerebral artery: No occlusion or significant stenosis. No aneurysm. Left anterior cerebral artery: No occlusion or significant stenosis. No aneurysm. POSTERIOR CIRCULATION: Right vertebral artery: No occlusion or significant stenosis. No aneurysm. Left vertebral artery: No occlusion or significant stenosis. No aneurysm. Basilar artery: No occlusion or significant stenosis. No aneurysm. Right posterior cerebral artery: No occlusion or significant stenosis. No aneurysm. Left posterior cerebral artery: No occlusion or significant stenosis. No aneurysm. Aorta: Atheromatous vascular calcifications of the aorta and carotids. Brain: No definite mass, mass effect, or midline shift. Cerebral ventricles: No ventriculomegaly. Teeth: Multiple dental caries and periapical lucencies, could represent source of odontogenic infection. Bones/joints: Unremarkable. No acute fracture. Soft tissues: Unremarkable. PROCEDURE INFORMATION: Exam: CTA Neck With Contrast Exam date and time: 01/18/2025 6:45 PM Age: 44 years old Clinical indication: C/O left facial numbness; Additional info: Cp with radiation to lue, subjective L sided facial numb TECHNIQUE: Imaging protocol: Computed tomographic angiography of the neck with contrast. Exam focused on the cervical segments of the vasculature. 3D rendering (Not supervised by radiologist): MIP and/or 3D reconstructed images were created by the technologist. Radiation optimization: All CT scans at this facility use at least one of these dose optimization techniques: automated exposure control; mA and/or kV adjustment per patient size (includes targeted exams where dose is matched to clinical indication); or iterative reconstruction. Contrast material: OMNI 350; Contrast volume: 80 ml; Contrast route: INTRAVENOUS (IV); COMPARISON: CR (CHEST, ) 01/18/2025 5:24 PM RADIATION DOSE METRICS: Total DLP (mGy-cm): 1064.82 FINDINGS: Right common carotid artery: No stenosis. No dissection or occlusion. Right internal carotid artery: No stenosis of the extracranial segment. No dissection or occlusion. Right external carotid artery: No occlusion or stenosis of the origin. Left common carotid artery: No stenosis. No dissection or occlusion. Left internal carotid artery: No stenosis of the extracranial segment. No dissection or occlusion. Left external carotid artery: No occlusion or stenosis of the origin. Right vertebral artery: No stenosis. No dissection or occlusion. Left vertebral artery: No stenosis. No dissection or occlusion. Soft tissues: Normal. No significant soft tissue swelling. Bones/joints: No acute fracture. CT/CT angio headneck* [id number] IMPRESSION: No large vessel stenosis or occlusion. IMPRESSION: No stenosis or occlusion. REFERENCES: NASCET CRITERIA. The degree of stenosis in the cervical segment of the internal carotid artery is based on NASCET criteria. Normal is no stenosis. Mild is less than 50% stenosis. Moderate is 50-69% stenosis. Severe is 70% to 99% stenosis. Total occlusion is no detectable patent lumen.
[2025-01-18] MEDS: iohexol 350 mg/mL 500 mL Btl (per mL) IV (18:50)
[2025-01-18] MEDS: diphenhydrAMINE 50 mg/mL SDV 1mL 25 MG IVP (19:04)
--- NOTE | 2025-01-18 19:14 | ECG_ITS ---
[employer] Test Date: 2025-01-18 Pat Name: Filomena Hernandez Department: Room: Gender: Female Accident Report Clerk: : 1980 Requested By: Funmilayo Hale Order Number: [id number] Frances MD: Broderick Cotton M.D. Measurements Intervals [place] Rate: 87 P: 25 OR: 151 QRS: 47 QRSD: 85 T: 124 QT: 373 QTc: 449 Interpretive Statements SINUS RHYTHM LOW QRS VOLTAGE IN PRECORDIAL LEADS [QRS DEFLECTION < 1.0 mV IN CHEST LEADS] ANTEROSEPTAL MYOCARDIAL INFARCTION , OF INDETERMINATE AGE [40+ ms Q WAVE IN V1-V4] Compared to ECG 01/18/2025 17:46:16 Myocardial infarct finding now present Electronically Signed On 01-19-2025 17:37:58 STRAP STITCHER by Broderick Cotton M.D. [email or web address]
[2025-01-18 19:18] VITALS: BP 142/116; PULSE 83; O2SAT 92
--- NOTE | 2025-01-18 19:34 | W.ED.CHESTPA ---
HPI - Chest Pain General: Chief Complaint: Chest Pain Stated Complaint: chest pain Time Seen by Provider: 01/18/25 17:16 History of Present Illness: Patient is a 44-year-old female with a history of diabetes, HTN, GERD who presents with a headache and pleuritic chest pain. She denies recent illness, fever, or cardiac history, including stents, chest pain, or prior cardiac testing. She reports that the pain does worsen with breathing but denies having a cough or recent vomiting. She takes Ozempic for diabetes and weight loss, denies any abdominal pain, vomiting, has had a bowel movement yesterday which was normal for her. She also endorses a mild generalized headache that is associated with some left-sided numbness, and denies any weakness. No history of brain aneurysm, not on hormone therapy. She is in penitent[facility]. Related Data Previous Rx's ?Medication ?Instructions ?Recorded triamcinolone acetonide 0.1 % 1 applic topical BID #15 grams 07/15/22 topical ointment cane #1 ea 07/31/24 furosemide 20 mg tablet 20 mg PO DAILY PRN edema #30 tabs 07/31/24 potassium chloride 10 mEq 10 meq PO DAILY #30 tabs 07/31/24 tablet,extended release(part/cryst) amlodipine 10 mg tablet 10 mg PO Q24H #30 tabs 10/30/24 ergocalciferol (vitamin D2) 1,250 1,250 mcg PO .weekly #4 caps 10/30/24 mcg (50,000 unit) capsule gabapentin 400 mg capsule 800 mg (2 x 400 mg) PO TID #540 10/30/24 caps ondansetron 4 mg disintegrating 4 mg PO Q8H PRN nausea and 10/30/24 tablet vomiting #10 tabs pantoprazole 40 mg tablet,delayed 40 mg PO DAILY #30 tabs 10/30/24 release (Protonix) propranolol 20 mg tablet 20 mg PO BID #60 tabs 10/30/24 semaglutide 0.25 mg or 0.5 mg (2 0.5 mg (0.736 mL) SUBCUT .weekly 10/30/24 mg/3 mL) subcutaneous pen injector #3 mL (Ozempic) Allergies Allergy/AdvReac Type Severity Reaction Status Date / Time adhesive tape Allergy ALGY-Bliste Verified 10/30/24 10:26 r Review of Systems General: Reports: 10 or more systems reviewed and unremarkable except in HPI and below Card: Reports: chest pain Neuro: Reports: headache(s) and numbness in extremities PFSH ED PFSH: Medical History (Updated 01/18/25 @ 19:34 by Herminio Cameron DO) Degeneration of meniscus of right knee Osteoarthritis of left knee Essential hypertension Peripheral neuropathy Surgical History History of bilateral knee replacement History of hysterectomy Family History Mother Brain cancer Father Diabetes Hypertension Social History Smoking and tobacco/nicotine status: current every day tobacco/nicotine user cigarettes Packs smoked per day: 1.5 Years cigarettes smoked: 30 Second hand smoke exposure: Yes Alcohol intake: former Substance/Drug Use: unknown Adopted: No Caregiver/support person: Yes Lives independently: Yes Household members: family Housing: House Marital status: Single Number of children: 1 Highest education level completed: High School Graduate service: No Current occupational status: unemployed Current gender identity: Female Special cristina needs: No Agree to transfusion: Yes Physical Exam Narrative: EXAM NARRATIVE: Overall well-appearing, vital stable on arrival, afebrile, no acute distress. Breathing comfortably on room air, saturating well, able to speak in full sentences without getting short of breath, no adventitious lung sounds, no signs of respiratory distress. GCS 15, alert and oriented x 4, able to follow commands and answer questions appropriately, cranial nerves II through XII intact, pupils equal round reactive, no nystagmus, [id number] intact, 5 out of 5 motor and sensation in all 4 extremities, no pronator drift. No gait ataxia. Normal sinus rhythm with no murmurs, no leg swelling, good cap refill, 2+ pulses throughout. Abdomen soft, nontender, nondistended, bowel sounds intact, no CVA tenderness. Course Vital Signs: Vital signs: Vital Signs Temperature 99.0 F 01/18/25 17:12 Pulse Rate 85 01/18/25 19:43 Respiratory Rate 16 01/18/25 18:36 Blood Pressure 142/116 01/18/25 19:18 Pulse Oximetry 94 01/18/25 19:43 Oxygen Delivery Me thod Room Air 01/18/25 19:18 MDM - Chest Pain Medical Decision Making -ddx: URI, pneumonia, pleurisy, pericarditis, ACS, dysrhythmia, PE, atypical migraine, aneurysm, electrolyte abnormality, dehydration - Patient overall well-appearing, with 1 day of pleuritic chest pain, nonexertional, not associated with shortness of breath, diaphoresis, vomiting. Also has a headache with left-sided subjective numbness, complete neuroexam with no focal neurodeficits. Unlabored respiratory exam. No history of blood clots, aneurysms, not on hormone therapy but with nature of chest pain, neurosymptoms and a prisoner with unreliable follow-up, will get CTA head, chest, evaluate with cardiac, infectious labs, provide headache cocktail and reassess. - Patient with reassuring ED evaluation, no systemic signs of infection or inflammation, no leukocytosis, no severe electrolyte abnormality, no NAN, no coagulopathy. CTA head and neck with no vascular abnormality, no evidence of blood clot, no areas of ischemia or hemorrhage. CTA chest with no evidence of VTE, no cardiac pathology, did see a mild amount of reactive most likely mediastinal lymph nodes, possibly from her prior URI causing her pleuritic chest pain, no markers to suggest that she would need any kind of antibiotics at this time. Patient's headache had completely resolved, her chest pain improved to, she had no subjective numbness either on reevaluation and so she was deemed stable to be discharged back to penitentiary, thought to have a viral URI/pleurisy and causing an atypical migraine, supportive care recommendations given, encouraged to follow-up with present practitioner in a few days for reevaluation, strict return precautions given, discharged. Lab Data 01/18/25 17:50 01/18/25 17:50 Radiology Impressions Chest X-Ray 01/18/25 17:14 IMPRESSION: No acute findings. Chest CTA 01/18/25 18:37 IMPRESSION: 1. No acute findings. 2. Mildly prominent mediastinal lymph nodes likely reactive. 3. Tiny right lower lobe pulmonary nodule. For patients at low risk (minimal or absent history of smoking and of other known risk factors), no routine follow-up is indicated. For patients at high risk (history of smoking or of other known risk factors), consider optional CT Chest at 12 months. (Reference: Kellie) REFERENCES: Kellie Alvarez, et al. Guidelines for Management of Incidental Pulmonary Nodules Detected on CT Images: From the Fleischner Society 2017. Radiology. 2017;284(1):228-243. Head/Neck CTA 01/18/25 18:37 IMPRESSION: No large vessel stenosis or occlusion. IMPRESSION: No stenosis or occlusion. REFERENCES: NASCET CRITERIA. The degree of stenosis in the cervical segment of the internal carotid artery is based on NASCET criteria. Normal is no stenosis. Mild is less than 50% stenosis. Moderate is 50-69% stenosis. Severe is 70% to 99% stenosis. Total occlusion is no detectable patent lumen. Laboratory Results WBC 8.96 10^3/uL (3.29-11.43) 01/18/25 17:50 RBC 4.26 10^6/uL (3.85-5.65) 01/18/25 17:50 Hgb 13.00 g/dL (11.27-16.99) 01/18/25 17:50 Hct 39.0 % (36-47) 01/18/25 17:50 MCV 91.5 fl (85-98) 01/18/25 17:50 MCH 30.5 pg (27-33) 01/18/25 17:50 MCHC 33.3 g/dL (30-55) 01/18/25 17:50 RDW 13.9 % (12.1-15.1) 01/18/25 17:50 Plt Count 240 10^3/cmm (157-399) 01/18/25 17:50 MPV 10.0 fL (7.4-10.4) 01/18/25 17:50 Neut % (Auto) 57.5 % 01/18/25 17:50 Lymph % (Auto) 33.5 % 01/18/25 17:50 [place] % (Auto) 6.7 % 01/18/25 17:50 Eos % (Auto) 1.8 % 01/18/25 17:50 Baso % (Auto) 0.3 % 01/18/25 17:50 Neut # (Auto) 5.15 10^3/uL (1.8-7.7) 01/18/25 17:50 Lymph # (Auto) 3.0 10^3/uL (0.8-4.8) 01/18/25 17:50 [place] # (Auto) 0.6 10^3/uL (0.2-0.9) 01/18/25 17:50 Eos # (Auto) 0.2 10^3/uL (0.0-0.8) 01/18/25 17:50 Baso # (Auto) 0.0 10^3/uL (0.0-0.1) 01/18/25 17:50 Nucleated RBC % (auto) 0 % 01/18/25 17:50 Nucleated RBCs # 0.0 /100WBC 01/18/25 17:50 PT 13.10 SECONDS (12.1-14.9) 01/18/25 17:50 INR 0.93 (0.8-1.2) 01/18/25 17:50 APTT 26.6 SECONDS (23.9-36.7) 01/18/25 17:50 Sodium 138 mmol/L (136-145) 01/18/25 17:50 Potassium 4.4 mmol/L (3.5-5.1) 01/18/25 17:50 Chloride 103 mmol/L (98-107) 01/18/25 17:50 Carbon Dioxide 26 mmol/L (22-29) 01/18/25 17:50 Anion Gap 13.4 (5-19) 01/18/25 17:50 BUN 12 mg/dL (6-20) 01/18/25 17:50 Creatinine 0.4 mg/dL (0.5-0.9) L 01/18/25 17:50 GFR Calculation 171.8 mL/min (90-130) H 01/18/25 17:50 Glucose 88 mg/dL (65-115) 01/18/25 17:50 Calculated Osmolality 285 mOsm/kg (285-295) 01/18/25 17:50 Calcium 9.0 mg/dL (8.5-10.5) 01/18/25 17:50 Total Bilirubin 0.6 mg/dL (0.15-1.2) 01/18/25 17:50 AST 13 U/L (0-32) 01/18/25 17:50 ALT 8 U/L (0-33) 01/18/25 17:50 Alkaline Phosphatase 86 U/L (35-105) 01/18/25 17:50 Troponin T Baseline < 6 ng/L (0-10) 01/18/25 17:50 NT-Pro-B Natriuret Pep < 36 pg/mL (0-125) 01/18/25 17:50 Total Protein 6.5 g/dL (6.6-8.7) L 01/18/25 17:50 Albumin 3.9 g/dL (3.5-5.2) 01/18/25 17:50 Globulin 2.6 g/dL (1.3-4.6) 01/18/25 17:50 Lipase 22 U/L (13-60) 01/18/25 17:50 All radiology interpretation(s) finalized by discharge Clincial Decision Support The following clinical decision support tools were used to aid in care of the patient HEART Score -> History: Slightly Suspicous, EKG: Normal, Age: 45-64 yrs, Risk Factors: 1 or 2 Risk Factors, Troponin: Baseline Trop <16 ng/L. Resulting HEART Score: 2. Discharge Plan Discharge Patient Disposition: Home Clinical Impression: Headache, Viral URI Condition: Stable Prescriptions: No Action Ozempic 0.25 mg or 0.5 mg (2 mg/3 mL) pen injector 0.5 mg SUBCUT .weekly Qty: 3 2RF propranolol 20 mg tablet 20 mg PO BID Qty: 60 2RF pantoprazole [Protonix] 40 mg tablet,delayed release (DR/EC) 40 mg PO DAILY Qty: 30 2RF gabapentin 400 mg capsule 800 mg PO TID Qty: 540 2RF amlodipine 10 mg tablet 10 mg PO Q24H Qty: 30 2RF ergocalciferol (vitamin D2) 1,250 mcg (50,000 unit) capsule 1,250 mcg PO .weekly Qty: 4 2RF ondansetron 4 mg tablet,disintegrating 4 mg PO Q8H PRN (Reason: nausea and vomiting) Qty: 10 0RF triamcinolone acetonide 0.1 % ointment 1 applic topical BID Qty: 15 0RF furosemide 20 mg tablet 20 mg PO DAILY PRN (Reason: edema) Qty: 30 2RF potassium chloride 10 mEq tablet,ER particles/crystals 10 meq PO DAILY Qty: 30 2RF Rx Instructions: take with lasix (DME) cane Device See Rx Instructions .Route Qty: 1 0RF Rx Instructions: As directed Discharge Orders: Discharge ED (Routine); Ordered 01/18/25 Ordered By: Herminio Cameron Referrals: Pascual Moody, JUNIOR SOFTWARE DEVELOPER-C [Primary Care Provider, [facility]] Discharge Diet: Usual diet Discharge Activity: Resume usual activity Patient Instructions: Opioid Safety, Pain Management, Patient Portal & [place]ard Instructions Activity Restrictions/Additional Instructions: You were seen for your headache and chest pain, you were evaluated with labs, an EKG and CT scans which were ultimately reassuring. Your CT scans found you to have a mild amount of lymph node inflammation, this is probably from a viral upper respiratory infection which is causing you to have the chest pain especially when you breathe, based off your labs this is not bacterial and does not need antibiotics at this time. Your headache was also investigated with a CT scan that looked at your blood vessels which was ultimately reassuring. For the residual chest pain and inflammation most likely from the infection, alternate Tylenol 650 mg and ibuprofen 4 to milligrams every 4 hours as needed, ensure you stay hydrated as well. Follow-up with the practitioner at the present early next week for reevaluation of your symptoms. Return to the ED with severe worsening or pain, episodes of passing out, fevers that do not improve with Tylenol, inability to eat or drink, any other emergent concerns. Print Language: Albanian Coding Level of Care Code ED Hot Saw Operator for Rosag Fwjovanni Heart Score HEART Score Components History: Slightly Suspicous EKG: Normal Age: 45-64 yrs Risk Factors: 1 or 2 Risk Factors Troponin: Baseline Trop <16 ng/L HEART Score RESULT HEART Score: 2
[2025-01-18 19:43] VITALS: PULSE 85; O2SAT 94
== END 2025-01-18 19:44 | disposition home or self-care (01) ==
PROVIDERS: Emergency Medicine; Emergency Provider Student in an Organized Health Care Education/Training Program; PCP Nurse Practitioner
DX: R51.9 Headache, unspecified (principal); J06.9 Acute upper respiratory infection, unspecified; I10 Essential (primary) hypertension
CPT/HCPCS: 70496; 70498; 71045; 71275; 80053; 83690; 83880; 84484; 85025; 85610; 85730; 93005; 96374; 96375; 99285; J0780; J1200; J1885